=== PATIENT | female | born 1945 | race Caucasian/White ===

== ENCOUNTER 2022-10-21 13:14 | Emergency (ER) | payer MEDICARE, SELFPAY ==
[2022-10-21] VITALS (9 sets, daily range): BP systolic 106–123; BP diastolic 68–71; PULSE 76–86; RESP 16–23; TEMP 36.6; O2SAT 98–100; BMI 21.9
--- NOTE | 2022-10-21 13:38 | ECG_ITS ---
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
--- NOTE | 2022-10-21 13:39 | ED.GENADUL1 ---
HPI - General Adult General Chief complaint: Allergic Reaction Stated complaint: ALLERGIC REACTION Time Seen by Provider: 10/21/22 13:26 Source: patient Mode of arrival: ambulance Limitations: no limitations History of Present Illness HPI narrative: patient stung by up to 9 bees on the right ankle and the right thigh earlier this morning. She took Benadryl and then went to [facility]. While in [facility] she felt dizzy and decided to have something to eat. After eating she vomited several times, got sweaty and the dizziness continued. She had to use the bathroom and had diarrhea. She was able to wipe herself but when she stood the dizziness got worse and she passed out - the daughter was able to catch her so that she did not fall to the floor. She did not hit her head and did not injure herself. EMS brought her in and told us that she was hypotensive when they checked her on arrival. She received NS IVF 500mL, Zofran 4mg IV and 25mg IV Benadryl from EMS. On arrival she complains that she still has some slight nausea/ queasiness . Dizziness has lessened. Related Data Previous Rx's Medication Instructions Recorded ondansetron 4 mg disintegrating 4 mg PO Q6H PRN nausea and 10/21/22 tablet vomiting #20 tabs Allergies Allergy/AdvReac Type Severity Reaction Status Date / Time No Known Drug Allergies Allergy Verified 10/21/22 13:21 Exam Narrative Exam Narrative: Nurses notes and vital signs reviewed and patient is not hypoxic. afebrile General: Well-appearing and in no apparent distress. Skin: Warm, dry, no pallor noted. No rash. Head: Normocephalic, atraumatic. Neck: supple. Non-tender Eye: Pupils are equal, round and EOMI. No scleral icterus. Ears, Nose, Mouth, and Throat: Oral mucosa is moist Cardiovascular: Regular Rate and Rhythm without murmur, gallop or rub. Respiratory: No accessory muscle use or respiratory distress. Lungs are clear to auscultation, no wheezing, rales or rhonchi Back: No CVA tenderness Musculoskeletal: Right LE = several areas of erythema in oval or circular shape to the right thigh, medial and lateral right ankle. There are raised areas associated with the location of the sting but I do not visualize or feel any foreign bodies in the areas of sting. All extremities with normal ROM, no calf or popliteal tenderness, no lower extremity edema/swelling GI: Abdomen is soft, non-distended. Normal bowel sounds. No tenderness to palpation. No rebound, guarding, or rigidity noted. Neurological: A&O x4. No cranial nerve dysfunction observed. No truncal ataxia. Moves all extremities. Sensation intact. Psychiatric: Cooperative and interactive. Normal mood and affect. Constitutional Vital Signs, click to edit/add: Last Vital Signs Temp 97.9 F 10/21/22 13:16 Pulse 83 10/21/22 14:10 Resp 18 10/21/22 14:10 BP 123/71 10/21/22 14:04 Pulse Ox 100 10/21/22 14:10 O2 Del Method Room Air 10/21/22 13:25 Course Vital Signs Vital signs: Vital Signs Temperature 97.9 F 10/21/22 13:16 Pulse Rate 76 10/21/22 13:16 Respiratory Rate 16 10/21/22 13:16 Blood Pressure 106/68 10/21/22 13:16 Pulse Oximetry 99 10/21/22 13:16 Oxygen Delivery Method Room Air 10/21/22 13:16 Temperature 97.9 F 10/21/22 13:16 Pulse Rate 83 10/21/22 14:10 Respiratory Rate 18 10/21/22 14:10 Blood Pressure 123/71 10/21/22 14:04 Pulse Oximetry 100 10/21/22 14:10 Oxygen Delivery Method Room Air 10/21/22 13:25 Medical Decision Making MDM Narrative Medical decision making narrative: Patient was placed on court recording monitor and EKG obtained. Blood drawn and sent for evaluation. she was ordered to receive any additional 500 mL of normal saline IV fluid in the bag. EMS provided and received additional Zofran 4 mg IV. Patient felt better after ED treatment and her lab tests were unremarkable. She was able to eat a popsicle in the ED. She was discharged home with recommendation to take her meds as prescribed - ED return for any new or worrisome symptoms. Lab Data Lab results reviewed: Yes I reviewed the patient's lab results Labs: Lab Results 10/21/22 Range/Units 13:48 WBC 12.0 H (4.0-11.0) 10^3/uL RBC 4.23 (4.20-5.40) 10^6/uL Hgb 12.8 (12.0-16.0) g/dL Hct 39.1 (36.0-48.0) % MCV 92.4 (81.0-99.0) fL MCH 30.3 (26.7-34.0) pg MCHC 32.7 (29.9-35.2) g/dL RDW 14.3 (11.0-15.0) % Plt Count 215 (150-450) 10^3/uL MPV 9.8 (9.5-13.5) fL Neut % (Auto) 88.5 H (43.0-75.0) % Lymph % (Auto) 5.0 L (20.5-60.0) % Rowan % (Auto) 5.1 (1.7-12.0) % Eos % (Auto) 0.6 L (0.9-7.0) % Baso % (Auto) 0.5 (0.2-2.0) % Neut # (Auto) 10.6 H (1.4-6.5) 10^3/uL Lymph # (Auto) 0.6 L (1.2-3.8) 10^3/uL Rowan # (Auto) 0.6 (0.3-0.8) 10^3/uL Eos # (Auto) 0.1 (0.0-0.7) 10^3/uL Baso # (Auto) 0.1 (0.0-0.1) 10^3/uL Abs Immat Gran (auto) 0.03 (0.00-0.03) 10^3/uL Imm/Tot Granulo (auto) 0.3 (0.0-0.5) % Sodium 139 (136-145) mmol/L Potassium 3.4 L (3.5-5.1) mmol/L Chloride 105 (98-107) mmol/L Carbon Dioxide 26.7 (21.0-32.0) mmol/L Anion Gap 10.7 BUN 11.0 (7.0-18.0) mg/dL Creatinine 0.86 (0.55-1.02) mg/dL Est GFR ( Amer) >60 (>=60) Est GFR (Non-Af Amer) >60 (>=60) BUN/Creatinine Ratio 12.8 Glucose 107 H (74-106) mg/dL Calcium 8.5 (8.5-10.1) mg/dL ECG Data Attestation: I personally reviewed and interpreted this ECG as follows: Interpretation: EKG interpretation: Emergency Department physician interpretation. Normal sinus rhythm at 74bpm. Normal axis, normal intervals and no ST segment elevation or depression. Discharge Plan Discharge Chief Complaint: Allergic Reaction Clinical Impression: Syncope, vasovagal, Bee sting reaction, Vomiting Patient Disposition: Home, Self-Care Time of Disposition Decision: 14:40 Prescriptions / Home Meds: New ondansetron 4 mg tablet,disintegrating 4 mg PO Q6H PRN (Reason: nausea and vomiting) Qty: 20 0RF Instructions: Insect Bite or Sting (ED), Acute Nausea and Vomiting (ED), Syncope in Older Adults (ED) Stand Alone Forms: Portal Instructions Referrals: Physician,Non-Staff, MD [Primary Care Provider] - 1 week
[2022-10-21 13:56] LABS: Basophils Absolute Auto 0.1 10^3/uL (0.0-0.1); Basophils Percent Auto 0.5 % (0.2-2.0); Eosinophils Absolute Auto 0.1 10^3/uL (0.0-0.7); Eosinophils Percent Auto 0.6 % (0.9-7.0); Hematocrit 39.1 % (36.0-48.0); Hemoglobin 12.8 g/dL (12.0-16.0); Immature Granulocytes Abs Auto 0.03 10^3/uL (0.00-0.03); Immature Granulocytes Pct Auto 0.3 % (0.0-0.5); Lymphocytes Absolute Auto 0.6 10^3/uL (1.2-3.8); Mean Corpuscular HGB Conc 32.7 g/dL (29.9-35.2); Mean Corpuscular Hemoglobin 30.3 pg (26.7-34.0); Mean Corpuscular Volume 92.4 fL (81.0-99.0); Mean Platelet Volume 9.8 fL (9.5-13.5); Monocytes Absolute Auto 0.6 10^3/uL (0.3-0.8); Monocytes Percent Auto 5.1 % (1.7-12.0); Neutrophils Absolute Auto 10.6 10^3/uL (1.4-6.5); Neutrophils Percent Auto 88.5 % (43.0-75.0); Platelet Count 215 10^3/uL (150-450); Red Blood Count 4.23 10^6/uL (4.20-5.40); Red Cell Distribution Width 14.3 % (11.0-15.0)
[2022-10-21 14:02] LABS: Anion Gap 10.7; BUN Creatinine Ratio 12.8; Calcium 8.5 mg/dL (8.5-10.1); Carbon Dioxide 26.7 mmol/L (21.0-32.0); Chloride 105 mmol/L (98-107); Estimated GFR (African America >60 (>=60); Estimated GFR (Non-African Ame >60 (>=60); Glucose 107 mg/dL (74-106); Potassium 3.4 mmol/L (3.5-5.1); Sodium 139 mmol/L (136-145)
[2022-10-21] MEDS: ONDANSETRON PF 4 MG/2 ML VIAL IV (14:04)
== END 2022-10-21 15:03 | disposition home or self-care (01) ==
PROVIDERS: Emergency Provider Emergency Medicine
DX: T63.441A Toxic effect of venom of bees, accidental (unintentional), initial encounter (principal); R55 Syncope and collapse; R11.10 Vomiting, unspecified
CPT/HCPCS: 36415; 80048; 85025; 93005; 96374; 99285

== ENCOUNTER 2023-05-21 07:51 | Outpatient (OUT) | payer MEDICARE, SELFPAY ==
[2023-05-21 08:25] LABS: Basophils Absolute Auto 0.1 10^3/uL (0.0-0.1); Basophils Percent Auto 1.5 % (0.2-2.0); Eosinophils Absolute Auto 0.1 10^3/uL (0.0-0.7); Eosinophils Percent Auto 2.9 % (0.9-7.0); Hematocrit 37.5 % (36.0-48.0); Hemoglobin 11.8 g/dL (12.0-16.0); Lymphocytes Absolute Auto 1.4 10^3/uL (1.2-3.8); Lymphocytes Percent Auto 29.1 % (20.5-60.0); Mean Corpuscular HGB Conc 31.5 g/dL (29.9-35.2); Mean Corpuscular Hemoglobin 28.9 pg (26.7-34.0); Mean Corpuscular Volume 91.7 fL (81.0-99.0); Mean Platelet Volume 9.9 fL (9.5-13.5); Monocytes Absolute Auto 0.5 10^3/uL (0.3-0.8); Monocytes Percent Auto 11.1 % (1.7-12.0); Neutrophils Absolute Auto 2.6 10^3/uL (1.4-6.5); Neutrophils Percent Auto 55.4 % (43.0-75.0); Platelet Count 234 10^3/uL (150-450); Red Blood Count 4.09 10^6/uL (4.20-5.40); Red Cell Distribution Width 14.2 % (11.0-15.0); White Blood Count 4.8 10^3/uL (4.0-11.0)
[2023-05-21 08:42] LABS: Alanine Aminotransferase 22 U/L (14-59); Albumin Globulin Ratio 0.9; Albumin Level 3.7 g/dL (3.4-5.0); Alkaline Phosphatase 87 U/L (46-116); Anion Gap 14.3; Aspartate Amino Transferase 20 U/L (15-37); BUN Creatinine Ratio 19.5; Calcium 9.2 mg/dL (8.5-10.1); Carbon Dioxide 27.4 mmol/L (21.0-32.0); Chloride 103 mmol/L (98-107); Chol HDL Ratio 2.4; Cholesterol 169 mg/dL (<=200); Estimated GFR (African America >60 (>=60); Estimated GFR (Non-African Ame >60 (>=60); Globulin 3.9 g/dL; Glucose 95 mg/dL (74-106); HDL Cholesterol 71 mg/dL (40-60); Potassium 3.7 mmol/L (3.5-5.1); Sodium 141 mmol/L (136-145); Total Protein 7.6 g/dL (6.4-8.2); Triglycerides 86 mg/dL (<=150); VLDL CHOLESTEROL 17.2 mg/dL
== END 2023-05-21 07:52 | disposition home or self-care (01) ==
LOC: LAB 07:51
PROVIDERS: Visit Provider Internal Medicine
DX: E78.5 Hyperlipidemia, unspecified (principal)
CPT/HCPCS: 36415; 80053; 80061; 85025

== ENCOUNTER 2023-12-24 08:27 | Outpatient (OUT) | payer MEDICARE, SELFPAY ==
[2023-12-24 09:03] LABS: Basophils Absolute Auto 0.1 10^3/uL (0.0-0.1); Basophils Percent Auto 1.4 % (0.2-2.0); Eosinophils Absolute Auto 0.1 10^3/uL (0.0-0.7); Eosinophils Percent Auto 2.2 % (0.9-7.0); Hematocrit 39.5 % (36.0-48.0); Hemoglobin 12.5 g/dL (12.0-16.0); Immature Granulocytes Abs Auto 0.01 10^3/uL (0.00-0.03); Immature Granulocytes Pct Auto 0.2 % (0.0-0.5); Lymphocytes Absolute Auto 1.5 10^3/uL (1.2-3.8); Lymphocytes Percent Auto 27.6 % (20.5-60.0); Mean Corpuscular HGB Conc 31.6 g/dL (29.9-35.2); Mean Corpuscular Hemoglobin 28.5 pg (26.7-34.0); Mean Platelet Volume 10.8 fL (9.5-13.5); Monocytes Absolute Auto 0.5 10^3/uL (0.3-0.8); Monocytes Percent Auto 8.5 % (1.7-12.0); Neutrophils Absolute Auto 3.3 10^3/uL (1.4-6.5); Neutrophils Percent Auto 60.1 % (43.0-75.0); Platelet Count 189 10^3/uL (150-450); Red Blood Count 4.39 10^6/uL (4.20-5.40); Red Cell Distribution Width 14.3 % (11.0-15.0); White Blood Count 5.6 10^3/uL (4.0-11.0)
[2023-12-24 09:23] LABS: Alanine Aminotransferase 17 U/L (14-59); Albumin Level 3.8 g/dL (3.4-5.0); Alkaline Phosphatase 71 U/L (46-116); Anion Gap 13.4; Aspartate Amino Transferase 24 U/L (15-37); BUN Creatinine Ratio 14.6; Bilirubin Total 1.3 mg/dL (0.2-1.0); Calcium 9.5 mg/dL (8.5-10.1); Chloride 105 mmol/L (98-107); Chol HDL Ratio 2.4; Cholesterol 180 mg/dL (<=200); Estimated GFR (African America >60 (>=60 mL/min/1.73m^2); Estimated GFR (Non-African Ame >60 (>=60 mL/min/1.73m^2); Globulin 3.7 g/dL; Glucose 95 mg/dL (74-106); HDL Cholesterol 76 mg/dL (40-60); Potassium 4.4 mmol/L (3.5-5.1); Sodium 141 mmol/L (136-145); Thyroid Stimulating Hormone 2.466 uIU/mL (0.358-3.740); Total Protein 7.5 g/dL (6.4-8.2); Triglycerides 104 mg/dL (<=150); VLDL CHOLESTEROL 20.8 mg/dL
== END 2023-12-24 08:28 | disposition home or self-care (01) ==
LOC: LAB 08:27
PROVIDERS: Visit Provider Nurse Practitioner Adult Health
DX: E78.5 Hyperlipidemia, unspecified (principal); R03.0 Elevated blood-pressure reading, without diagnosis of hypertension; Z51.81 Encounter for therapeutic drug level monitoring; D50.9 Iron deficiency anemia, unspecified
CPT/HCPCS: 36415; 80053; 80061; 82043; 82570; 84443; 85025

== ENCOUNTER 2024-06-11 08:32 | Outpatient (OUT) | payer MEDICARE, SELFPAY ==
--- OUTSIDE RECORDS SUMMARY | 2024-06-11 08:40 | XMS_ITS | CCD ---
Author Organization [facility] CliniSyoh Care Team Providers [employer] Name Role Phone ZACHARY VERA Consulting Unavailable REQUEST, NONE LISTED Attending Unavaila ble REQUEST, NONE LISTED Admitting Unavaila ble REQUEST, NONE LISTED Attending Unavaila ble REQUEST, NONE LISTED Consulting Unavaila ble REQUEST, NONE LISTED Admitting Unavaila ble ZACHARY VERA Attending Unavailable ZACHARY VERA Consulting Unavailable ZACHARY VERA Admitting Unavailable Kasia Meza Unavailable DO Apolinar Nguyen Primary Care Provider Self, Referral Attending Provider Unavailable DO Apolinar Nguyen Primary Care Provider [phone] BLANCA Faye Attending Provider DO Apolinar Nguyen Primary Care Provider [phone] BLANCA Faye Attending Provider [phone] SENTHIL Meza Attending Provider [phone] DO Apolinar Nguyen Primary Care Provider Self, Referral Attending Provider Unavailable Kasia Meza Admitting Unavailable Kasia Meza Attending Unavailable Apolinar Nguyen Primary Care Unavailable Self, Referral Admitting Unavailable Self, Referral Attending Unavailable Apolinar Nguyen Primary Care Unavailable Apolinar Nguyen DO Primary Care Provider Apolinar Nguyen DO Unavailable APOLINAR NGUYEN Attending Unavailable APOLINAR NGUYEN Referring Unavailable APOLINAR NGUYEN Attending Unavailable APOLINAR NGUYEN Referring Unavailable PERRY BAKER Attending Unavailable GAETANO FAYE Attending Unavailable Allergies Allergy Classification Reported Allergen(s) Allergy Type Date of Onset Reaction(s) Facility (3 sources) Honey bee venom Propensity to adverse reactions 3 Swelling [facility] Work Phone: Medications Current Medications Medication Drug Class(es) Dates Sig (Normalized) Sig (Original) acetaminophen 325 mg oral capsule (6 sources) take 1 capsule by mouth every six hours as needed acetaminophen (Tylenol) 325 MG capsule Take 325 mg by mouth every 6 (six) hours if needed. Active tylenol 1 tab Or al Active aspirin 81 mg delayed release oral tablet (8 sources) Platelet Aggregation Inhibitor, Nonsteroidal Anti-inflammatory Drug Start: 08-11-2023 Aspirin (Adult Lo w Dose Aspirin) 81 mg tablet,delayed release (DR/EC) Active 81 MG PO Daily August 11, 2023 12:00am take 1 tablet by luis th every twenty-four hours Aspirin 81 MG 1 tablet Orally Once a day Active atorvastatin 10 mg oral tablet (8 sources) HMG-CoA Reductase Inhibitor Start: 06-20-2023 take 1 tablet by mouth at bedtime atorvastatin (Lipitor) 10 MG tablet Indications: Hyperlipidemia LDL goal Take 1 tablet (10 mg) by mouth at bedtime 90 tablet 3 06/20/2023 Active take 1 tablet by luis th every twenty-four hours Lipitor 20 MG 1 tablet Orally Once a day Active Z08-Cilozt 1 MG (3 sources) E70-Swaazt 1 MG Orally Not-Taking calcium carbonate 1250 mg oral tablet (3 sources) take 1 tablet by mouth every twelve hours Calcium 500 MG 1 tablet with meals Orally Twice a day Active calcium citrate 1500 mg / cholecalciferol 200 unt oral tablet (2 sources) Vitamin D Start: 08-11-19 24 take 1 tablet by mouth twice daily Calcium Citrate-Vitamin D3 (Calcium Citrate + D) 315 mg-5 mcg (200 unit) tablet Active 1 TAB PO Twice daily August 11, 2023 12:00am Calcium Citrate / Vitamin D (3 sources) take 650 mg by mouth once daily Calcium Citrate-Vitamin D (CALCIUM CITRATE +D PO) Take 650 mg by mouth 1 (one) time each day Active cholecalciferol 0.05 mg oral tablet (3 sources) Vitamin D End: 12-30-19 24 take 1 tablet by mouth in the morning cholecalciferol (Vitamin D-3) 50 MCG (2000 UT) tablet Take 1 tablet by mouth in the morning. 12/30/2023 Discontinued clobetasol propionate 0.0005 mg/mg topical ointment (6 sources) Corticosteroid clobetasol (Rogers vate) 0.05 % ointment 1 application 2 (two) times a day as needed. Active Temovate Active famotidine 20 mg oral tablet (5 sources) Histamine-2 Receptor Antagonist Start: 07-23-2023 take 1 tablet by mouth at bedtime famotidine (Pepcid) 20 MG tablet Indications: LPRD (laryngopharyngeal reflux disease) Take 1 tablet (20 mg) by mouth at bedtime 90 tablet 3 07/23/2023 Active Lactobacillus Combination No.9 (Adult 50 Plus Probiotic) 4 billion cell capsule (2 sources) Start: 08-11-2023 take 4 capsules by mouth once daily Lactobacillus Combination No.9 (Adult 50 Plus Probiotic) 4 billion cell capsule Active 4000 MMU CELLS PO Daily August 11, 2023 12:00am administer with a meal lisinopril 5 mg oral tablet (5 sources) Angiotensin Converting Enzyme Inhibitor Start: 09-24-2023 take 1 tablet by mouth once daily lisinopril 5 MG tablet Indications: Borderline high blood pressure TAKE 1 TABLET BY MOUTH EVERY DAY 90 tablet 3 09/24/2023 Active Start: 08-11-2023 take 2.5 mg by mouth once raymundo y Lisinopril Active 2.5 MG PO Daily August 11, 2023 12:00am Multivitamin Adults 50+ - (3 sources) Multivitamin Yong lts 50+ - Orally Active omeprazole 40 mg oral tablet (5 sources) Proton Pump Inhibitor Start: take 40 mg by mouth once daily Omeprazole Active 40 MG PO Daily August 11, 2023 12:00am Start: 07-23-2023 take 1 capsule by mo [facility] once daily before mealtime omeprazole (PriLOSEC) [address] capsule Indications: LPRD (laryngopharyngeal reflux disease) TAKE 1 CAPSULE BY MOUTH EVERY MORNING BEFORE MEALS. DO NOT CRUSH OR CHEW 90 capsule 3 07/23/2023 Active predniSONE 20 mg oral tablet (6 sources) Start: 08-11-2023 take 20 mg by mouth twice daily Prednisone Active 20 MG PO Twice daily 10 5 August 11, 2023 12:00am Start: 09-09-2021 take 1 tablet by luis every twelve hours predniSONE 20 MG 1 tablet Orally bid for 5 day(s) Sep, Not-Taking triamcinolone acetonide 0.25 mg/ml topical cream (1 source) Corticosteroid Start: 08-11-2023 Triamcinolone Acetonide Active 1 APPLIC TOPICAL Twice daily 15 August 11, 2023 12:00am Vitamin D3 Complete - (3 sources) Vitamin D3 Compl ete - Orally Active Completed/Discontinued Medications Medication Drug Class(es) Dates Sig (Normalized) Sig (Original) cefdinir 300 mg oral capsule (3 sources) Cephalosporin Antibacterial take 1 capsule by mouth every twelve hours Cefdinir 300 MG 1 capsule Orally every 12 hrs for 10 days Not-Taking Gait/Transfer Belt - (3 sources) Start: 06-05-2016 Gait/Transfer Belt - as directed Jun, Not-Taking Problems Active Problems Problem Classification Problem Date Documented Date Episodic/Chronic Administrative/socia l admission (10 sources) Patient encounter status; Translations: [Other specified counseling] Onset: 11-20-2022 Resolved: 05-23-2023 03-27-2023 Episodic Allergic reactions (3 sources) Allergic contact dermatitis due to plants, except food; Translations: [Contact dermatitis due to poison yash] Onset: 09-09-2021 Resolved: 09-09-2021 Episodic Deficiency and other anemia (5 sources) Iron deficiency anemia; Translations: [Iron deficiency anemia, unspecified] Onset: 05-23-2023 05-23-2023 Episodic Disorders of lipid metabolism (5 sources) Hyperlipidemia; Translations: [Hyperlipidemia, unspecified] Onset: 07-05-2014 10-08-2022 Chronic Esophageal disorders (5 sources) Laryngopharyngeal reflux; Translations: [Gastro-esophageal reflux disease without esophagitis] Onset: 10-26-2022 10-26-2022 Chronic Essential hypertension (4 sources) Essential hypertension; Translations: [Essential (primary) hypertension] Onset: 12-30-2023 12-30-2023 Chronic Fracture of neck of femur (hip) (3 sources) Closed fracture of neck of femur; Translations: [Fracture of unspecified part of neck of left femur, subsequent encounter for closed fracture with routine healing] Episodic Immunizations and screening for infectious disease (6 sources) Encounter for immunization; Translations: [Needs influenza immunization] Onset: 12-28-2020 Episodic Nutritional deficiencies (3 sources) Vitamin D deficiency; Translations: [Vitamin D deficiency, unspecified] Onset: 06-07-2016 10-08-2022 Chronic Osteoporosis (3 sources) Osteoporosis; Translations: [Age-related osteoporosis without current pathological fracture] Onset: 07-14-2015 10-08-2022 Chronic Other connective tissue disease (1 source) Pain in right foot Episodic Superficial injury; contusion (1 source) Contusion of right foot, initial encounter Episodic Unclassified (1 source) Pain in right foot; Translations: [Pain in right foot] Onset: 01-30-2023 Past or Other Problems Problem Classification Problem Date Documented Da te Episodic/Chronic Genitourinary symptoms and ill-defined conditions (3 sources) Dysuria; Translations: [Dysuria] Onset: 08-01-2022 Resolved: 03-27-2023 03-27-2023 Episodic Inflammatory diseases of female pelvic organs (3 sources) Acute vaginitis; Translations: [Acute vaginitis] Onset: 08-01-2022 Resolved: 11-20-2022 11-20-2022 Episodic Menopausal disorders (3 sources) Atrophic vaginitis; Translations: [Postmenopausal atrophic vaginitis] Onset: 08-01-2022 Resolved: 11-20-2022 11-20-2022 Chronic Mood disorders (2 sources) Mood disorders Onset: 12-30-2023 12-30-2023 Other circulatory disease (3 sources) Prehypertension; Translations: [Elevated blood-pressure reading, without diagnosis of hypertension] Onset: 03-26-2023 Resolved: 12-30-2023 03-26-2023 Episodic Other screening for suspected conditions (not mental disorders or infectious disease) (4 sources) Encounter for screening mammogram for malignant neoplasm of breast; Translations: [Patient encounter status] Onset: 10-15-2022 Resolved: 03-27-2023 03-27-2023 Episodic Other upper respiratory disease (3 sources) Hoarse; Translations: [Dysphonia] Onset: 10-15-2022 Resolved: 03-27-2023 03-27-2023 Episodic Other upper respiratory disease (3 sources) Polyp of vocal cord ; 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] Onset: 10-26-2022 Resolved: 05-23-2023 05-23-2023 Episodic Results Test Name Value Interpretation Reference Range Facil ity ALL CBC WITH AUTO DIFFon BASOPHILS ABSOLUTE AUTO 0.1 [facility] Basophils/100 WBC (Bld) 1.4 % 0.2 - 2.0 % [facility] Eosinophils/100 WBC (Bld) 2.2 % 0.9 - 7.0 % [facility] Erythrocyte distribution width (RBC) [Ratio] 14.3 % 11.0 - 15.0 % [facility] Hematocrit (Bld) [Volume fraction] 39.5 % 36.0 - 48.0 % [facility] Hemoglobin (Bld) [Mass/Vol] 12.5 g/dL 12.0 - 16.0 g/dL [facility] IMMATURE GRANULOCYTES ABS AUTO 0.01 [facility] Immature granulocytes/100 WBC (Bld) 0.2 % 0.0 - 0.5 % [facility] LYMPHOCYTES ABSOLUTE AUTO 1.5 [facility] Lymphocytes/100 WBC (Bld) 27.6 % 20.5 - 60.0 % [facility] MCH (RBC) [Entitic mass] 28.5 pg 26.7 - 34.0 pg [facility] MCHC (RBC) [Mass/Vol] 31.6 g/dL 29.9 - 35.2 g/dL [facility] MCV (RBC) [Entitic vol] 90 fL 81.0 - 99.0 fL [facility] MONOCYTES ABSOLUTE AUTO 0.5 [facility] Monocytes/100 WBC (Bld) 8.5 % 1.7 - 12.0 % [facility] NEUTROPHILS ABSOLUTE AUTO 3.3 [facility] Neutrophils/100 WBC (Bld) 60.1 % 43.0 - 75.0 % [facility] Platelet mean volume (Bld) [Entitic vol] 10.8 fL 9.5 - 13.5 fL [facility] TBH EO # 0.1 [facility] PLT 189 [facility] RBC 4.39 [facility] WBC 5.6 [facility] MM screening mammo BI w/CADo n 12-17-2023 MM screening mammo BI w/CAD [facility] Main [place] [id number] Mammography Report Signed Patient: Coral Juan MR#: [id number] : 1945 Acct:[id number] Age/Sex: 78 / F ADM Date: 12/17/23 Loc: [place] Room: Type: REG CLI Attending Dr: Nathan Self Copies to: Apolinar Nguyen DO SELF,REFERRAL Ordering Provider: SELF,REFERRAL Date of Service: 12/17/23 MM/MM screening mammo BI w/CAD: SCREENING CLINICAL DATA: Screening for malignancy. BILATERAL SCREENING MAMMOGRAMS - FULL FIELD DIGITAL WITH TOMOSYNTHESIS AND CAD Tomosynthesis craniocaudal and mediolateral oblique views of both breasts were obtained using low- dose digital technique. Comparison is made to prior studies from 11/13/2022, 11/10/2021, 10/27/2020, and 10/08/2019. This examination was reviewed with the aid of CAD. There are scattered fibroglandular densities. Benign-appearing lymph nodes are noted chest wall. There are benign-appearing calcifications bilaterally. There are no dominant masses, typically malignant calcifications or architectural distortion. There has been no significant interval change. MM/MM screening mammo BI w/CAD IMPRESSION: NO MAMMOGRAPHIC EVIDENCE OF MALIGNANCY. ROUTINE FOLLOW-UP IS RECOMMENDED IN ONE YEAR. RESULT CODE: 2 Benign Findings(s) DENSITY CODE: 2 (approximately 25-50% glandular) FOLLOW UP: 1YR The false-negative rate of mammography is approximately 10-percent. Management of a palpable abnormality must be based on clinical grounds. Patient was entered into a reminder system with a target due date for the next mammogram. Impression dictated by: Merritt Quiroz M.D.12/17/2023 2:27 PM Dictation Location: [facility] Transcribed By: [facility] 12/17/23 142 Dictated By: Merritt Quiroz II, MD 12/17/231421 Signed By: 12/17/23 142 Normal [facility] XR foot RT min 3V*on 023 XR foot RT min 3V* [facility] Main [place] [address] [place] [address] XRay Report Signed Patient: Coral Juan MR#: [id number] : 1945 Acct:[id number] Age/Sex: 77 / F ADM Date: 01/30/23 Loc: XDUCLY Room: Type: REG CLI Attending Dr: Kasiabal NDIAYE Copies to: SENTHIL Mccrary Ordering Provider: SENTHIL Mccrary Date of Service: 01/30/23 XR/XR foot RT min 3V*: Right foot pain RIGHT FOOT - 3 views CLINICAL DATA: Patient dropped a board onto her foot 3 days ago and has pain and bruising at the distal second through fourth metatarsals COMPARISON: None AP, lateral and oblique views were obtained. Minor irregularity is seen at the articular aspect of the head of the second metatarsal. This could be degenerative or AVN (Freiberg's infraction). There is also minor chronic appearing deformity at the head of the proximal phalanx of the fifth toe. There is no definite acute fracture or dislocation. A small plantar calcaneal spur is seen. There are no significant soft tissue abnormalities. XR/XR foot RT min 3V* IMPRESSION: NO ACUTE BONY INJURY. Impression dictated by: Coral Deleon M.D.01/30/2023 3:18 PM Dictation Location: [place] [address] Transcribed By: [facility] 01/30/23 1518 Dictated By: Coral Deleon MD 01/30/23 1512 Signed By: 01/30/23 1518 Normal [facility] XR foot RT min 3V* [facility] [employer] Other XR foot RT min 3V* [facility] [employer] Other XR foot RT min 3V* [address] [place] [address] [employer] Other XR foot RT min 3V* [place] [address] [employer] Other XR foot RT min 3V* XRay Report [employer] Other XR foot RT min 3V* Signed [employer] Other XR foot RT min 3V* Patient: Coral Juan MR#: [id number] [employer] Other XR foot RT min 3V* : 1945 Acct:[id number] [employer] Other XR foot RT min 3V* Age/Sex: 77 / F ADM Date: 01/30/23 [employer] Other XR foot RT min 3V* Loc: XDUCLY Room: Type: [facility] [employer] Other XR foot RT min 3V* Attending Dr: Kasia NDIAYE [employer] Other XR foot RT min 3V* Copies to: SENTHIL Mccrary [employer] Other XR foot RT min 3V* Ordering Provider: SENTHIL Mccrary [employer] Other XR foot RT min 3V* Date of Service: 01/30/23 [employer] Other XR foot RT min 3V* XR/XR foot RT min 3V*: Right foot pain [employer] Other XR foot RT min 3V* RIGHT FOOT - 3 views [employer] Other XR foot RT min 3V* CLINICAL DATA: Patient dropped a board onto her foot 3 days ago and has pain and bruising at the [employer] Other XR foot RT min 3V* distal second through fourth metatarsals [employer] Other XR foot RT min 3V* COMPARISON: None [employer] Other XR foot RT min 3V* AP, lateral and oblique views were obtained. Minor irregularity is seen at the articular aspect of [employer] Other XR foot RT min 3V* the head of the second metatarsal. This could be degenerative or AVN (Freiberg's infraction). [employer] Other XR foot RT min 3V* There is also minor chronic appearing deformity at the head of the proximal phalanx of the fifth [employer] Other XR foot RT min 3V* toe. There is no definite acute fracture or dislocation. A small plantar calcaneal spur is seen. [employer] Other XR foot RT min 3V* There are no significant soft tissue abnormalities. [employer] Other XR foot RT min 3V* XR/XR foot RT min 3V* [employer] Other XR foot RT min 3V* IMPRESSION: [employer] Other XR foot RT min 3V* NO ACUTE BONY INJURY. [employer] Other XR foot RT min 3V* Impression dictated by: Coral Deleon M.D.01/30/2023 3:18 PM [employer] Other XR foot RT min 3V* Dictation Location: [place] [address] [employer] Other XR foot RT min 3V* Transcribed By: [facility] 01/30/23 [facility] [employer] Other XR foot RT min 3V* Dictated By: Coral Deleon MD 01/30/[address] [place] [address] [employer] Other XR foot RT min 3V* Signed By: [place] [employer] Other XR foot RT min 3V* 01/30/[address] [place] [address] [employer] Other Vital Signs Date Time Vital Sign Value Performing Clinician Facility 12-30-2023 11:51-0400 Body height 158.8 cm Gaetano Faye [employer] Work Phone: [facility] 12-30-2023 11:51-0400 Body mass index (BMI) [Ratio] 21.06 kg/m2 Gaetano Faye [employer] Work Phone: [facility] 12-30-2023 11:51-0400 Body weight 53.07 kg Gaetano Faye [employer] Work Phone: [facility] 12-30-2023 11:51-0400 Diastolic blood pressure 64 mm[Hg] Gaetano Faye [employer] Work Phone: [facility] 12-30-2023 11:51-0400 Heart rate 71 /min Gaetano Faye [employer] Work Phone: [facility] 12-30-2023 11:51-0400 SaO2% (BldA) [Mass fraction] 96 % Gaetano Faye [employer] Work Phone: [facility] 12-30-2023 11:51-0400 Systolic blood pressure 140 mm[Hg] Gaetano Faye [employer] Work Phone: [facility] 08-11-2023 12:34-0400 Body height 160.02 cm [facility] 08-11-2023 12:34-0400 Body mass index (BMI) [Ratio] 20.5 kg/m2 [facility] 08-11-2023 12:34-0400 Body temperature 97.5 [degF] [facility] 08-11-2023 12:34-0400 Body weight 52.67 kg [facility] 08-11-2023 12:34-0400 Diastolic blood pressure 78 mm[Hg] [facility] 08-11-2023 12:34-0400 Heart rate 62 /min [facility] 08-11-2023 12:34-0400 Respiratory rate 16 /min [facility] 08-11-2023 12:34-0400 SaO2% (BldA) [Mass fraction] 99 % [facility] 08-11-2023 12:34-0400 Systolic blood pressure 138 mm[Hg] [facility] 01-30-2023 14:45-0500 Body height 160.02 cm Kasia Meza Other [employer] [facility] [employer] Other 01-30-2023 14:45-0500 Body mass index (BMI) [Ratio] 21.43 kg/m2 Kasia Meza Other [employer] Other 01-30-2023 14:45-0500 Body temperature 100 [degF] Kasia Susana Other [employer] Other 01-30-2023 14:45-0500 Body weight 54.89 kg Kasia Susana Other [employer] Other 01-30-2023 14:45-0500 Diastolic blood pressure 83 mm[Hg] Kasia Susana Other [employer] Other 01-30-2023 14:45-0500 Respiratory rate 18 /min Kasia Susana Other [employer] Other 01-30-2023 14:45-0500 SaO2% (BldA) [Mass fraction] 95 % Kasia Susana Other [employer] Other 01-30-2023 14:45-0500 Systolic blood pressure 165 mm[Hg] Kasia Susana Other [employer] Other 09-08-2022 10:15-0400 Body height 160.02 cm Kasia Susana Other [employer] Other 09-08-2022 10:15-0400 Body mass index (BMI) [Ratio] 21.57 kg/m2 Kasia Susana Other [employer] Other 09-08-2022 10:15-0400 Body temperature 98.9 [degF] Kasia Susana Other [employer] Other 09-08-2022 10:15-0400 Body weight 55.25 kg Kasia Susana Other [employer] Other 09-08-2022 10:15-0400 Diastolic blood pressure 87 mm[Hg] Kasia Susana Other [employer] Other 09-08-2022 10:15-0400 Respiratory rate 18 /min Kasia Susana Other [employer] Other 09-08-2022 10:15-0400 SaO2% (BldA) [Mass fraction] 99 % Kasia Susana Other [employer] Other 09-08-2022 10:15-0400 Systolic blood pressure 175 mm[Hg] Kasia Susana Other [employer] Other 09-09-2021 14:35-0400 Body height 160.02 cm Kasia Susana Other [employer] Other 09-09-2021 14:35-0400 Body mass index (BMI) [Ratio] 19.84 kg/m2 Kasia Susana Other [employer] Other 09-09-2021 14:35-0400 Body temperature 98.2 [degF] Kasia Susana Other [employer] Other 09-09-2021 14:35-0400 Body weight 50.8 kg Kasia Susana Other [employer] Other 09-09-2021 14:35-0400 Diastolic blood pressure 83 mm[Hg] Kasia Susana Other [employer] Other 09-09-2021 14:35-0400 Respiratory rate 18 /min Kasia Susana Other [employer] Other 09-09-2021 14:35-0400 SaO2% (BldA) [Mass fraction] 99 % Kasia Meza Other [employer] Other 09-09-2021 14:35-0400 Systolic blood pressure 139 mm[Hg] Kasia Meza Other [employer] Other Encounters Encounter Date Encounter Type Care Provider Facility Start: 12-30-2023 End: 12-30-2023 Office outpatient visit 25 minutes Gaetano Faye [employer]SEM[employer]ER Work Phone: [facility] Comment on above: Encounter for subseq uent annual wellness visit (AWV) in Medicare patient (Primary Dx); Essential hypertension (CMS/HCC); ACP (advance care planning); Hyperlipidemia LDL goal <130 (CMS/HCC); Iron deficiency anemia, unspecified iron deficiency anemia type; LPRD (laryngopharyngeal reflux disease); Need for immunization against influenza; Medication management Start: 12-30-2023 End: 12-30-2023 Patient encounter procedure Gaetano Faye SUB[employer]SEM[employer]ER Work Phone: [facility] Work Phone: Start: 12-30-2023 End: 12-30-2023 ambulatory GAETANO FAYE Not Available Start: 12-24-2023 End: 12-24-2023 Clinisync Result Encounter Gaetano Faye [employer] Work Phone: [facility] Unsolicited Start: 12-24-2023 End: 12-24-2023 Clinisync Result Encounter Gaetano Faye [employer] Work Phone: [facility] Unsolicited Start: 12-17-2023 End: 12-17-2023 ambulatory DO Apolinar Nguyen Work Phone: [facility] Work Phone: Start: 12-17-2023 End: 12-17-2023 Patient encounter procedure DO Apolinar gNuyen Work Phone: [facility] Work Phone: Start: 08-11-2023 End: 08-11-2023 ambulatory [facility] Work Phone: Start: 08-11-2023 End: 08-11-2023 Patient encounter procedure [facility] [place] Work Phone: Start: 05-23-2023 End: 05-23-2023 ambulatory APOLINAR NGUYEN Not Available Start: 03-27-2023 End: 03-27-2023 ambulatory APOLINAR NGUYEN Not Available Start: 02-01-2023 End: 02-01-2023 ambulatory PERRY BAKER Not Available Start: 01-30-2023 End: 01-30-2023 Patient encounter procedure DO Apolinar Patrick Work Phone: [facility] [place] Work Phone: Start: 01-30-2023 End: 01-30-2023 ambulatory DO Apolinar Patrick Work Phone: [facility] Work Phone: Start: 01-30-2023 Office outpatient vi sit 15 minutes Kasia Meza [facility] [place] Start: 11-20-2022 End: 03-27-2023 Patient encounter procedure [facility]et[facility] Faye [facility] Start: 11-13-2022 End: 11-13-2022 ambulatory DO Apolinar Nguyen Work Phone: [facility] Work Phone: Start: 11-13-2022 End: 11-13-2022 Patient encounter procedure DO Apolinar Nguyen Work Phone: [facility] Work Phone: Start: 09-08-2022 End: 09-08-2022 ambulatory Kasia Meza Other [employer] Other Start: 09-08-2022 Office outpatient vi sit 15 minutes Kasia Meza [facility] [place] Start: 11-10-2021 End: 11-10-2021 Patient encounter procedure DO [facility] Nguyen [facility] Start: 09-09-2021 End: 09-09-2021 ambulatory Kasia Meza Other [employer] Other Start: 09-09-2021 Office outpatient ne w 20 minutes Kasia Meza [facility] [facility] Start: 12-28-2020 End: 12-29-2020 ambulatory ZACHARY VERA Facility:[facility] Start: 05-10-2020 End: 05-11-2020 ambulatory NONE LISTED REQUEST Facility: Start: 04-11-2020 End: 04-12-2020 ambulatory ZACHARY VERA Facility: Procedures Date Procedure Procedure Detail Performing Clinician Start: 12-24-2023 ALL CBC WITH AUTO DIFF Gaetano Faye NP Work Phone: Start: 12-17-2023 Screening mammograph y of bilateral breasts DO Apolinar Nguyen Work Phone: Start: 01-30-2023 X-ray of right foot DO Apolinar Nguyen Work Phone: Start: 11-13-2022 Screening mammograph y of bilateral breasts DO Apolinar Nguyen Work Phone: Start: 11-10-2021 Screening mammograph y of bilateral breasts DO Apolinar Wintersman Work Phone: Plan of Treatment Date Care Activity Detail Author Start: 07-02-2024 End: 12-29-2024 CBC panel - Blood by Automated count CBC Lab Routine Iron deficiency anemia, unspecified iron deficiency anemia type Medication management Expected: 07/02/2024, Expires: 12/29/2024 [facility] Comment on above: Expected: 07/02/2024 , Expires: 12/29/2024 Start: 07-02-2024 End: 12-29-2024 Comprehensive metabolic 2000 panel - Serum or Plasma Comprehensive metabolic panel Lab Routine Essential hypertension (CMS/HCC) Expected: 07/02/2024, Expires: 12/29/2024 [facility] Comment on above: Expected: 07/02/2024 , Expires: 12/29/2024 Start: 07-02-2024 End: 12-29-2024 Lipid 1996 panel - Serum or Plasma Lipid panel Lab Routine Hyperlipidemia LDL goal <130 ([facility]/HCC) Expected: 07/02/2024, Expires: 12/29/2024 [facility] Comment on above: Expected: 07/02/2024 , Expires: 12/29/2024 Start: 07-02-2024 End: 12-29-2024 Microalbumin/Creatinine panel in random Urine Microalbumin / creatinine urine ratio Lab Routine Essential hypertension ([facility]) Expected: 07/02/2024, Expires: 12/29/2024 [facility] Work Phone: Comment on above: Expected: 07/02/2024 , Expires: 12/29/2024 Start: 06-29-2024 End: 06-29-2024 Patient encounter procedure 06/29/2024 11:15 AM EDT Office Visit [facility] [address] [place] [id number] Apolinar Nguyen, DO [address] [place] [address] [facility] Start: 12-30-2023 End: 12-30-2023 Patient encounter procedure 12/30/2023 11:15 AM EDT Office Visit [facility] [address] [place] [id number] Apolinar Nguyen, DO [address] [place] [address] [facility] Start: 11-03-2023 Influenza vaccination Influenza Vacc ine (#1) [facility] Start: 1945 Medicare Annual Wellness (AWV) Medicare Annual Wellness (AWV) [facility] Immunizations Immunization Date Immunization Notes Care Provider Fa cility 12-30-2023 Seasonal trivalent influenza vaccine, adjuvanted, preservative free Gaetano Faye SUBASSEMBLER Work Phone: [facility] 11-20-2022 Influenza, Seasonal, Quadrivalent, Adjuvanted Gaetano Faye SUBASSEMBLER Work Phone: [facility] 11-20-2022 influenza virus vacc ine, unspecified formulation Gaetano Faye SUBASSEMBLER Work Phone: [facility] 11-24-2021 Influenza, High-dose Seasonal, Quadrivalent, Preservative Free Gaetano Faye SUBASSEMBLER Work Phone: [facility] 11-10-2021 SARS-COV-2 (COVID-19 ) vaccine, mRNA, spike protein, LNP, bivalent, PF Gaetano Faye SUBASSEMBLER Work Phone: [facility] 12-05-2020 Influenza, High-dose Seasonal, Quadrivalent, Preservative Free Gaetano Faye SUBASSEMBLER Work Phone: [facility] 09-10-2017 tetanus and diphther ia toxoids, adsorbed, preservative free, for adult use (5 Lf of tetanus toxoid and 2 Lf of diphtheria toxoid) Gaetano Faye SUBASSEMBLER Work Phone: [facility] 02-05-2017 pneumococcal conjuga te vaccine, 13 valent Gaetano Faye SUBASSEMBLER Work Phone: [facility] 02-10-2016 pneumococcal polysaccharide vaccine, 23 valent Gaetano Faye SUBASSEMBLER Work Phone: [facility] Payers Date Payer Category Payer Private Health Insurance [employer] [address] [id number] 2022 Unknown [id number] 2009 Medicare [id number] 2009 [place] [address] [id number] 2009 Medicare [id number] 1959 Self-pay 1945 Unknown [id number] 1944 Unknown [id number] 1944 Unknown [id number] 1944 Unknown [id number] Unknown [id number] Unknown [id number] Unknown [id number] Unknown [id number] Unknown [id number] Social History Date Type Detail Facility Unknown if ever smoked [facility] Other Start: 05-23-2023 End: 12-30-2023 Sex Assigned At [facility] Start: 1945 Sex Assigned At Female [facility] Start: 10-15-2022 End: 08-11-2023 Tobacco smoking status NHIS Ex-smoker (finding) [facility] Start: 03-04-1999 End: 03-04-2014 History of tobacco use Current smoker [facility] Start: 03-04-1999 End: 03-04-2014 History of tobacco use Cigarette Smoker [facility] Start: 10-15-2022 End: 12-30-2023 Cigarettes smoked current (pack per day) - Reported 0.5 [facility] Start: 10-15-2022 Tobacco use and exposure Smokeless tobacco non-user [facility] Start: 05-23-2023 End: 12-30-2023 Alcoholic beverage intake Lifetime non-drinker (finding) [facility] How often to you have a drink containing alcohol? Never [facility] How many standard drinks containing alcohol do you have on a typical day? Patient does not drink [facility] Start: 10-11-2022 Alcohol Comment Caffeine: 1-2 cups/day 8 oz of pop daily, unsweetened tea [facility] Start: 1945 Sex assigned at Not on file [facility] NEGATED: Highlighted rowStart: NINF History of tobacco use Passive smoker [facility] History of Present illness Narrative 12-30-2023 Gaetano Faye NP - 12/30/2023 11:15 AM EDT Note Date & Type Note Facility 12-30-2023 History of Presen t illness Narrative Images from the original note were not included. Coral Juan is a 78 y.o. female presents with chief complaint of 6 mos ov MWV (Patient presents for 6 mos MWV and to review labs ) HPI: HPI I have reviewed and reconciled the history and medication list with the patient today. 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 Ko-3 pins placed SOCIAL HISTORY: Social History Tobacco Use Smoking status: Former Current packs/day: 0.00 Average packs/day: 0.5 packs/day for 15.0 years (7.5 ttl pk-yrs) Types: Cigarettes Start date: 1999 Quit date: 2014 Years since quittin.8 Passive exposure: Never Smokeless tobacco: Never Substance Use Topics Alcohol use: Never Comment: Caffeine: 1-2 cups/day 8 oz of pop daily, unsweetened tea Drug use: Never Depression: Not at risk (12/30/2023) PHQ-2 PHQ-2 Score: 0 FAMILY HISTORY: Family History Problem Relation Name Age of Onset Hypertension Father Cancer Father Diabetes Father Atrial fibrillation Son No Known Problems Son No Known Problems Daughter MEDICATIONS: Current Outpatient Medications Medication Instructions acetaminophen (TYLENOL) 325 mg, Every 6 hours PRN aspirin (ASPIRIN EC LOW STRENGTH) 81 mg, Daily atorvastatin (LIPITOR) 10 mg, Oral, Nightly Calcium Citrate-Vitamin D (CALCIUM CITRATE +D PO) 650 mg, Daily clobetasol (Temovate) 0.05 % ointment 1 application , 2 times daily PRN famotidine (PEPCID) 20 mg, Oral, Nightly lisinopril 5 mg, Oral, Daily omeprazole (PriLOSEC) [address] capsule TAKE 1 CAPSULE BY MOUTH EVERY MORNING BEFORE MEALS. DO NOT CRUSH OR CHEW ALLERGIES: Allergies Allergen Reactions Bee Venom Swelling Passed out Immunization History Administered Date(s) Administered Influenza, High-dose Seasonal, Quadrivalent, Preservative Free 12/05/2020, 11/24/2021 Influenza, Seasonal, Quadrivalent, Adjuvanted 11/20/2022 Influenza, trivalent, adjuvanted 12/30/2023 Moderna SARS-CoV-2 Vaccination 04/11/2020, 05/10/2020, 12/28/2020 Pneumococcal Conjugate PCV 13 02/05/2017 Pneumococcal Polysaccharide PPSV23 02/10/2016 SARS-COV-2 (COVID-19) vaccine, mRNA, spike protein, LNP, PF, 50 mcg/0.5 mL 11/27/2022, 11/11/2023 SARS-COV-2 (COVID-19) vaccine, mRNA, spike protein, LNP, bivalent, PF 11/10/2021 Td (adult), 5 Lf tetanus toxoid, preservative free, adsorbed 09/10/2017 REVIEW OF SYMPTOMS: Review of Systems Constitutional: Negative for chills, diaphoresis, fatigue and fever. HENT: Negative for ear pain, hearing loss, sinus pressure, sore throat and trouble swallowing. Eyes: Negative for pain and discharge. Respiratory: Negative for cough and shortness of breath. Cardiovascular: Negative for chest pain, palpitations and leg swelling. Gastrointestinal: Negative for abdominal pain, blood in stool, constipation and diarrhea. Genitourinary: Negative for difficulty urinating. Musculoskeletal: Negative for arthralgias and gait problem. Skin: Negative for rash. Neurological: Negative for dizziness, light-headedness and headaches. Psychiatric/Behavioral: Negative for sleep disturbance. PHYSICAL EXAM: Visit Vitals BP 140/64 Pulse 71 Ht 5' 2.5 Wt 117 lb SpO2 96% BMI 21.06 kg/m Smoking Status Former BSA 1.53 m BP Readings from Last 3 Encounters: 12/30/23 140/64 05/23/23 164/82 03/27/23 122/68 Wt Readings from Last 3 Encounters: 12/30/23 117 lb 05/23/23 112 lb 03/27/23 110 lb Physical Exam Constitutional: General: She is awake. She is not in acute distress. Appearance: She is well-developed. HENT: Head: Normocephalic. Right Ear: Tympanic membrane normal. Left Ear: Tympanic membrane normal. Nose: Nose normal. Mouth/Throat: Mouth: Mucous membranes are moist. Pharynx: Oropharynx is clear. Eyes: Extraocular Movements: Extraocular movements intact. Neck: Thyroid: No thyromegaly. Vascular: No carotid bruit. Cardiovascular: Rate and Rhythm: Normal rate and regular rhythm. Pulses: Posterior tibial pulses are 1+ on the right side and 1+ on the left side. Heart sounds: Normal heart sounds. No murmur heard. No gallop. Pulmonary: Effort: Pulmonary effort is normal. No respiratory distress. Breath sounds: Normal breath sounds. No wheezing, rhonchi or rales. Chest: Chest wall: No mass, deformity, swelling or tenderness. Breasts: Right: Normal. Left: Normal. Abdominal: General: Bowel sounds are normal. There is no distension. Palpations: Abdomen is soft. There is no hepatomegaly, splenomegaly or mass. Tenderness: There is no abdominal tenderness. Musculoskeletal: General: Normal range of motion. Cervical back: Normal range of motion and neck supple. No rigidity or tenderness. Thoracic back: Deformity present. Right lower leg: No edema. Left lower leg: No edema. Comments: Dorsal kyphosis Lymphadenopathy: Cervical: No cervical adenopathy. Upper Body: Right upper body: No supraclavicular or axillary adenopathy. Left upper body: No supraclavicular or axillary adenopathy. Skin: General: Skin is warm and dry. Neurological: Mental Status: She is alert and oriented to person, place, and time. Motor: No weakness. Gait: Gait is intact. Psychiatric: Mood and Affect: Mood normal. Mood is not anxious or depressed. Behavior: Behavior is cooperative. Thought Content: Thought content normal. Cognition and Memory: Cognition normal. Judgment: Judgment normal. ASSESSMENT AND PLAN: Assessment/Plan Diagnoses and all orders for this visit: Encounter for subsequent annual wellness visit (AWV) in Medicare patient -A wellness visit was completed with the patient today by Gaetano Faye NP. Demographics updated. The past medical history, family history, and social history reviewed and updated. The medication list (including supplements) has been reconciled. -A list of other providers involved with the patient's care and any durable medical goods providers documented. -Depression screening was completed and addressed as indicated. Cognitive function was assessed by direct observation and assessment of ability to perform ADLs and iADLs was done. As well as Mini-Cog assessment. -We reviewed, and discussed as indicated, safety issues, including falls risk assessment. -Time was spent reviewing and discussing age-appropriate screenings, immunizations and indicated laboratory monitoring. -We discussed Advanced Directives and code status and this information was updated in the chart. -BMI was assessed. Educational handout with tips for healthy diet, exercise and lifestyle modifications that will promote achieving or maintaining a healthy weight provided. The BMI will be monitored at routine office appointments as well . -Major risk factors for heart disease were identified and modifiable risk factors discussed. -A Care Plan ( Report card ) was provided to patient at the end of the appointment. Included in this is recommendations for when any testing or immunizations need to be repeated. Essential hypertension (CMS/HCC) - Microalbumin / creatinine urine ratio; Future - Comprehensive metabolic panel; Future ACP (advance care planning) -Full code Hyperlipidemia LDL goal <130 ([facility]) - Lipid panel; Future Iron deficiency anemia, unspecified iron deficiency anemia type - CBC; Future LPRD (laryngopharyngeal reflux disease) Need for immunization against influenza - Flu vaccine, trivalent, adjuvanted, preservative free Medication management - CBC; Future Dictated, but not read Patient presents today for a routine office visit and Medicare wellness examination. She s able to draw a Clock and remember her three words. She denies depression or falls. She s able to get up from the chair without using the arms of the chair. She does have a living will and a healthcare, power of civil attorney. She wishes to be a full code. She has had Cologuards which are negative. She no longer wants to do those. She declines DEXA scans. She did have a mammogram today and also a breast exam. She is up-to-date on all of her vaccines. She does not want to get a shingles vaccine. CBC is within normal limits. Comprehensive metabolic profile is normal. Thyroid is normal. Lipid panel. LDL is at goal at 84 on statin therapy. She takes Pepcid 20 mg once a day. She has no other issues today. ROS is negative. Physical exam is within normal limits except for the dorsal kyphosis. She ll return here in six months or sooner if needed. Dr. Nguyen was present in office suite today and is supervising patient care and available for consult. I'm following his plan of care for the above problems. Previous notes and plan were reviewed and followed. Gaetano Faye, MSN, COAL DUMPING EQUIPMENT OPERATOR-BUTTONHOLE MARKER documented in this encounter [facility] Evaluation note 01-30-2023 Note Date & Type Note Facility 01-30-2023 Evaluation note Encounter Date Diagnosis Assessment Notes Jan, Right foot pain (ICD-10 - M79.671) Jan, Contusion of right foot, initial encounter (ICD-10 - S90.31XA) Continue home medications as prescribed. Ice and elevate your foot 2-3 times a day. Take Tylenol or Motrin as needed for pain. Follow-up with your family physician if no improvement in 5 to 7 days Jan, Other Contusion material was printed [facility] Other Evaluation note 09-08-2022 Note Date & Type Note Facility 09-08-2022 Evaluation note Encounter Date Diagnosis Assessment Notes Sep, Poison yash (ICD-10 - L23.7) Poison yash allergy home care material was printed Drink plenty fluids, get plenty of rest. Continue home medications as prescribed. Take the prednisone as prescribed until gone. Take Benadryl as needed for itching. Follow-up with your family physician if no improvement in 2 to 3 days [facility] Other Evaluation note 09-09-2021 Note Date & Type Note Facility 09-09-2021 Evaluation note Encounter Date Diagnosis Assessment Notes Sep, Poison yash dermatitis (ICD-10 - L23.7) Contact dermatitis home care material was printed Drink plenty fluids, get plenty of rest. Take the prednisone as prescribed until gone. You may take Benadryl as needed for itching and redness. You may use calamine lotion to the rash as well. Follow-up with your family physician if no improvement in 2 to 3 days. [facility] Other History general Narrative - Reported 05-24-2016 Note Date & Type Note Facility 05-24-2016 History general N arrative - Reported Type Medical History hyperlipidemia Medical History fx left hip Surgical History C section Surgical History cataracts Surgical History 3 pins in left hip 05/24/2016 Hospitalization History See above [facility] Other History general Narrative - Reported 05-24-2016 Note Date & Type Note Facility 05-24-2016 History general N arrative - Reported Type Medical History hyperlipidemia Medical History fx left hip Surgical History C section x3 Surgical History cataracts Surgical History 3 pins in left hip 05/24/2016 Hospitalization History See above [facility] Other Evaluation note Note Date & Type Note Facility Evaluation note No assessment information availa [facility] Work Phone: Evaluation note Note Date & Type Note Facility Evaluation note Diagnosis Encounter for subsequent annual wellness visit (AWV) in Medicare patient- Primary Essential hypertension (CMS/HCC) Unspecified essential hypertension ACP (advance care planning) Other specified counseling Hyperlipidemia LDL goal <130 (CMS/HCC) Other and unspecified hyperlipidemia Iron deficiency anemia, unspecified iron deficiency anemia type LPRD (laryngopharyngeal reflux disease) Acute laryngitis, without mention of obstruction Need for immunization against influenza Need for prophylactic vaccination and inoculation against influenza Medication management documented in this encounter [facility] Summary Purpose Family History No Family History Records Found Relationship Condition Age at Onset Recorded Date/T chetan brother Unknown father History of stroke Unknown Unknown Not Specified Congestive heart failure Unknown Heart disease Unknown Relationship Condition Age at Onset Recorded Date/T chetan brother Unknown father History of stroke Unknown Unknown mother Congestive heart failure Unknown Heart disease Unknown Advance Directives No Advanced Directives Records Found Advance Directive Response Recorded Date/ Time Advance Directives Yes November 2:32pm Advance Directive Response Recorded Date/ Time Advance Directives Yes November 1:32pm Date Activated Date Inactivated Comments 11/20/2022 12:05 PM Date Activated Date Inactivated Comments 12/30/2023 12:15 PM Date Activated Date Inactivated Comments 11/20/2022 12:05 PM 12/30/2023 12:15 PM Chief Complaint and Reason for Visit Chief Complaint Screening Chief Complaint Poison yash on face Additional Source Comments INFORMATION SOURCE (unrecogn ized section and content) DATE CREATED AUTHOR 01/17/2021 [facility] DATE CREATED AUTHOR AUTHOR'S ORGANIZ ATION 12/23/2023 [facility] DATE CREATED AUTHOR AUTHOR'S ORGANIZ ATION 01/05/2024 [facility] EPIC REASON FOR VISIT (unrecogniz ed section and content) Reason Comments 6 mos ov MWV Patient presents for 6 mos MWV and to review labs Care Teams (unrecognized sec tion and content) Team Status: Inactive Member Role Status Dates Apolinar Nguyen DO Primary Care Provider Active Referral Self Attending Provider Active Team Status: Active Member Role Status Dates Apolinar Nguyen DO Primary Care Provider Active Team Status: Inactive Member Role Status Dates Apolinar Nugyen DO Primary Care Provider Active Gaetano Faye RN MSN ANP-C Attending Provider Act francisca Team Status: Inactive Member Role Status Dates Apolinar Nguyen DO Primary Care Provider Active LAWRENCE ThackerC Attending Provider Active Team Status: Inactive Member Role Status Dates Apolinar Nguyen DO Primary Care Provider Active Start: August 11, 2023 End: August 11, 2023 Kalli Lawrence , ARUN Attending Provider Active S tart: August 11, 2023 End: August 11, 2023 Team Status: Inactive Member Role Status Dates Apolinar Nguyen DO Primary Care Provider Active Start: December 17, 2023 End: December 17, 2023 Referral Self Attending Provider Active Start: O ctober 2023 End: December 17, 2023 [employer] Relationship Specialty Start Date End Date Apolinar Nguyen DO [address] [place] [address] PCP - General Internal Medicine 08/01/22 Apolinar Nguyen DO [address] [place] [address] PCP - ACO Reach 07/03/23 [employer] Relationship Specialty Start Date End Date Apolinar Nguyen DO [address] [place] [address] PCP - General Internal Medicine 08/01/22 Apolinar Nguyen DO [address] [place] [address] PCP - ACO Reach 07/03/23 Goals (unrecognized section and content) Goals may be documented in a n alternate section FOR RECORDS PERTAINING TO PATIENTS WHO ARE OR HAVE BEEN ENROLLED IN A CHEMICAL DEPENDENCY/SUBSTANCEABUSE PROGRAM, SOME INFORMATION MAY BE OMITTED. This clinical summary was aggregated from multiple sources. Caution should be exercised in using it in the provision of clinical care. This summary normalizes information from multiple sources, and as a consequence, information in this document may materially change the coding, format and clinical context of patient data. In addition, data may be omitted in some cases. CLINICAL DECISIONS SHOULD BE BASED ON THE PRIMARY CLINICAL RECORDS. [employer] provides no warranty or guarantee of the accuracy or completeness of information in this document.
[2024-06-11 08:50] LABS: Basophils Absolute Auto 0.1 10^3/uL (0.0-0.1); Basophils Percent Auto 1.7 % (0.2-2.0); Eosinophils Absolute Auto 0.4 10^3/uL (0.0-0.7); Eosinophils Percent Auto 6.1 % (0.9-7.0); Hematocrit 35.6 % (36.0-48.0); Hemoglobin 11.5 g/dL (12.0-16.0); Immature Granulocytes Abs Auto 0.01 10^3/uL (0.00-0.03); Immature Granulocytes Pct Auto 0.2 % (0.0-0.5); Lymphocytes Absolute Auto 1.5 10^3/uL (1.2-3.8); Mean Corpuscular HGB Conc 32.3 g/dL (29.9-35.2); Mean Corpuscular Hemoglobin 28.5 pg (26.7-34.0); Mean Corpuscular Volume 88.3 fL (81.0-99.0); Mean Platelet Volume 9.8 fL (9.5-13.5); Monocytes Absolute Auto 0.5 10^3/uL (0.3-0.8); Monocytes Percent Auto 8.8 % (1.7-12.0); Neutrophils Absolute Auto 3.3 10^3/uL (1.4-6.5); Neutrophils Percent Auto 57.2 % (43.0-75.0); Platelet Count 203 10^3/uL (150-450); Red Blood Count 4.03 10^6/uL (4.20-5.40); Red Cell Distribution Width 14.3 % (11.0-15.0); White Blood Count 5.8 10^3/uL (4.0-11.0)
[2024-06-11 10:37] LABS: Creatinine Urine Random 25.77 mg/dL (20.00-300.00); Microalbumin Urine Random <1.3 mg/dL (<=30.0)
[2024-06-11 10:47] LABS: Alanine Aminotransferase 17 U/L (14-59); Albumin Globulin Ratio 1.1; Alkaline Phosphatase 78 U/L (46-116); Anion Gap 11.5; Aspartate Amino Transferase 20 U/L (15-37); BUN Creatinine Ratio 19.1; Bilirubin Total 1.2 mg/dL (0.2-1.0); Calcium 9.3 mg/dL (8.5-10.1); Carbon Dioxide 28.4 mmol/L (21.0-32.0); Chloride 102 mmol/L (98-107); Chol HDL Ratio 2.8; Cholesterol 190 mg/dL (<=200); Estimated GFR (African America 55 (>=60 mL/min/1.73m^2); Estimated GFR (Non-African Ame 45 (>=60 mL/min/1.73m^2); Globulin 3.8 g/dL; Glucose 95 mg/dL (74-106); HDL Cholesterol 67 mg/dL (40-60); Potassium 3.9 mmol/L (3.5-5.1); Sodium 138 mmol/L (136-145); Total Protein 7.8 g/dL (6.4-8.2); Triglycerides 105 mg/dL (<=150)
== END 2024-06-11 08:33 | disposition home or self-care (01) ==
PROVIDERS: PCP Family Medicine; Visit Provider Nurse Practitioner Adult Health
DX: E78.5 Hyperlipidemia, unspecified (principal); I10 Essential (primary) hypertension; D50.9 Iron deficiency anemia, unspecified; Z79.899 Other long term (current) drug therapy
CPT/HCPCS: 36415; 80053; 80061; 82043; 82570; 85025

== ENCOUNTER 2024-12-10 07:46 | Outpatient (OUT) | payer MEDICARE, SELFPAY ==
--- OUTSIDE RECORDS SUMMARY | 2024-12-10 08:16 | XMS_ITS | CCD ---
Author Organization [facility] Care Team Providers Care Sander [employer]enc[employer] Name Role Phone ZACHARY VERA Consulting Unavailable REQUEST, NONE LISTED Attending Unavaila ble REQUEST, NONE LISTED Admitting Unavaila ble REQUEST, NONE LISTED Attending Unavaila ble REQUEST, NONE LISTED Consulting Unavaila ble REQUEST, NONE LISTED Admitting Unavaila ble ZACHARY VERA Attending Unavailable ZACHARY VERA Consulting Unavailable ZACHARY VERA Admitting Unavailable Kasia Meza Unavailable DO Apolinar Vasquez Primary Care Provider [phone] Self, Referral Attending Provider Unavailable DO Apolinar Vasquez Primary Care Provider [phone] LBANCA Faye Attending Provider [phone] DO Apolinar Vasquez Primary Care Provider BLANCA Faye Attending Provider [phone] SENTHIL Meza Attending Provider [phone] DO Apolinar Vasquez Primary Care Provider [phone] Self, Referral Attending Provider Unavailable Kasia Meza Admitting Unavailable Kasia Meza Attending Unavailable Apolinar Vasquez Primary Care Unavailable Self, Referral Admitting Unavailable Self, Referral Attending Unavailable Apolinar Vasquez Primary Care Unavailable Apolinar Vasquez DO Primary Care Provider [phone] Apolinar Vasquez DO Unavailable APOLINAR VASQUEZ Attending Unavailable SIERRA ORTIZ Attending Unavailable APOLINAR VASQUEZ Referring Unavailable GAETANO FAYE Attending Unavailable SIERAR ORTIZ Attending Unavailable Allergies Allergy Classification Reported Allergen(s) Allergy Type Date of Onset Reaction(s) Facility (12 sources) Honey bee venom Propensity to adverse reactions [address] [place] [address] Work Phone: Medications Current Medications Medication Drug Class(es) Dates Sig (Normalized) Sig (Original) acetaminophen 325 mg oral capsule (15 sources) take 1 capsule by mouth every six hours as needed acetaminophen (Tylenol) 325 MG capsule Take 325 mg by mouth every 6 (six) hours if needed Active tylenol 1 tab Or al Active aspirin 81 mg delayed release oral tablet (17 sources) Platelet Aggregation Inhibitor, Nonsteroidal Anti-inflammatory Drug Start: 08-11-2023 Aspirin (Adult Lo w Dose Aspirin) 81 mg tablet,delayed release (DR/EC) Active 81 MG PO Daily August 11, 2023 12:00am take 1 tablet by luis th every twenty-four hours Aspirin 81 MG 1 tablet Orally Once a day Active atorvastatin 10 mg oral tablet (17 sources) HMG-CoA Reductase Inhibitor Start: 07-24-2024 atorvastatin (Lipito r) 10 MG tablet Indications: Hyperlipidemia LDL goal TAKE 1 TABLET AT BEDTIME 90 tablet 3 07/24/2024 Active Start: 06-20-2023 take 1 tablet by luis th at bedtime atorvastatin (Lipitor) 10 MG tablet Indications: Hyperlipidemia LDL goal Take 1 tablet (10 mg) by mouth at bedtime 90 tablet 3 06/20/2023 Active take 1 tablet by luis th every twenty-four hours Lipitor 20 MG 1 tablet Orally Once a day Active R46-[id number] 1 MG (3 sources) P05-Sexjon 1 MG Orally Not-Taking calcium carbonate 1250 mg oral tablet (3 sources) take 1 tablet by mouth every twelve hours Calcium 500 MG 1 tablet with meals Orally Twice a day Active calcium citrate 1500 mg / cholecalciferol 200 unt oral tablet (2 sources) Vitamin D Start: 08-11-2023 take 1 tablet by mouth twice daily Calcium Citrate-Vitamin D3 (Calcium Citrate + D) 315 mg-5 mcg (200 unit) tablet Active 1 TAB PO Twice daily August 11, 2023 12:00am Calcium Citrate / Vitamin D (12 sources) take 650 mg by mouth once in the morning Calcium Citrate-Vitamin D (CALCIUM CITRATE +D PO) Take 650 mg by mouth in the morning and 650 mg before bedtime. Active take 650 mg by mouth once daily Calcium Citrate-Vitamin D (CALCIUM CITRATE +D PO) Take 650 mg by mouth 1 (one) time each day Active cholecalciferol 0.05 mg oral tablet (3 sources) Vitamin D End: 12-30-2023 take 1 tablet by mouth in the morning cholecalciferol (Vitamin D-3) 50 MCG (2000 UT) tablet Take 1 tablet by mouth in the morning. 12/30/2023 Discontinued clobetasol propionate 0.0005 mg/mg topical ointment (9 sources) Corticosteroid End: 06-16-2024 clobetasol (Temovate) 0.05 % ointment 1 application 2 (two) times a day as needed. 06/16/2024 Discontinued (Therapy completed) Temovate Active Cranberry-Vitamin C-Probiotic (AZO CRANBERRY PO) (8 sources) Cranberry-Vitami n C-Probiotic (AZO CRANBERRY PO) Take by mouth Active famotidine 20 mg oral tablet (8 sources) Histamine-2 Receptor Antagonist Start: 2023 End: 2024 take 1 tablet by mouth at bedtime famotidine (Pepcid) 20 MG tablet Indications: LPRD (laryngopharyngeal reflux disease) Take 1 tablet (20 mg) by mouth at bedtime 90 tablet 3 07/23/2023 06/16/2024 Discontinued (Therapy completed) Lactobacillus Combination No.9 (Adult 50 Plus Probiotic) 4 billion cell capsule (2 sources) Start: 2023 take 4 capsules by mouth once daily Lactobacillus Combination No.9 (Adult 50 Plus Probiotic) 4 billion cell capsule Active 4000 MMU CELLS PO Daily August 11, 2023 12:00am administer with a meal lisinopril 5 mg oral tablet (14 sources) Angiotensin Converting Enzyme Inhibitor Start: 2023 take 1 tablet by mouth once daily [...] Orally Active omeprazole 40 mg oral tablet (8 sources) Proton Pump Inhibitor Start: take 40 mg by mouth once daily Omeprazole Active 40 MG PO Daily August 11, 2023 12:00am Start: 07-23-2023 End: 06-16-2024 take 1 capsule by mouth once daily before mealtime omeprazole (PriLOSEC) [address] capsule Indications: LPRD (laryngopharyngeal reflux disease) TAKE 1 CAPSULE BY MOUTH EVERY MORNING BEFORE MEALS. DO NOT CRUSH OR CHEW 90 capsule 3 07/23/2023 06/16/2024 Discontinued (Side effects) pantoprazole 40 mg delayed release oral tablet (6 sources) Proton Pump Inhibitor Start: 06-16-2024 take 1 tablet by mouth in the morning pantoprazole (ProtoNix) 40 MG EC tablet Indications: Gastroesophageal Reflux Disease Take 1 tablet (40 mg) by mouth in the morning. Do not crush, chew, or split. 90 tablet 1 06/16/2024 Active predniSONE 20 mg oral tablet (6 sources) Start: 08-11-2023 take 20 mg by mouth twice daily Prednisone Active 20 MG PO Twice daily 10 August 11, 2023 12:00am Start: 09-09-2021 take 1 tablet by luis th every twelve hours predniSONE 20 MG 1 tablet Orally bid for 5 day(s) Sep, Not-Taking Probiotic Product (PROBIOTIC DAILY PO) (8 sources) Probiotic Produc t (PROBIOTIC DAILY PO) Take by mouth Daily Active triamcinolone acetonide 0.25 mg/ml topical cream (1 [...] Problem Classification Problem Date Documented Date Episodic/Chronic Allergic reactions (3 sources) Allergic contact dermatitis due to plants, except food; Translations: [Contact dermatitis due to poison yash] Onset: 09-09-2021 Resolved: 09-09-2021 Episodic Chronic kidney disease (10 sources) Chronic kidney disease stage 3A ; Translations: [Stage 3a chronic kidney disease (HCC) ([facility]/HCC)] Onset: 06-16-2024 06-16-2024 Chronic Disorders of lipid metabolism (16 sources) Hyperlipidemia; Translations: [Hyperlipidemia, unspecified] Onset: 07-05-2014 10-08-2022 Chronic Esophageal disorders (16 sources) Laryngopharyngeal reflux; Translations: [Gastro-esophageal reflux disease without esophagitis] Onset: 10-26-2022 10-26-2022 Chronic Essential hypertension (15 sources) Essential hypertension; Translations: [Essential (primary) hypertension] [...] influenza immunization] Onset: 12-28-2020 Episodic Nutritional deficiencies (14 sources) Vitamin D deficiency; Translations: [Vitamin D deficiency, unspecified] Onset: 06-07-2016 10-08-2022 Chronic Osteoporosis (14 sources) Osteoporosis; Translations: [Age-related osteoporosis without current pathological fracture] Onset: 07-14-2015 10-08-2022 Chronic Other connective tissue disease (1 source) Pain in right foot Episodic Other skin disorders (2 sources) Lesion of skin of face; Translations: [Disorder of the skin and subcutaneous tissue, unspecified] 06-16-2024 Episodic Other skin disorders (4 sources) Seborrheic keratosis; Translations: [Other seborrheic keratosis] 07-16-2024 Episodic Other skin disorders (4 sources) Actinic keratosis; Translations: [Actinic keratosis] 07-16-2024 Episodic Other skin disorders (2 sources) Lentiginosis; Translations: [Other melanin hyperpigmentation] 08-27-2024 Episodic Other skin disorders (2 sources) Inflamed seborrheic keratosis; Translations: [Inflamed seborrheic keratosis] 08-27-2024 Episodic Superficial injury; contusion (1 source) Contusion of right foot, initial encounter Episodic Unclassified (1 source) Pain in right foot; Translations: [Pain in right foot] Onset: 01-30-2023 Past or Other Problems Problem Classification Problem Date Documented Da te Episodic/Chronic Administrative/social admission (20 sources) Patient encounter status; Translations: [Other specified counseling] Onset: 11-20-2022 Resolved: 05-23-2023 03-27-2023 Episodic Deficiency and other anemia (14 sources) Iron deficiency anemia; Translations: [Iron deficiency anemia, unspecified] Onset: 05-23-2023 05-23-2023 Episodic Genitourinary symptoms and ill-defined conditions (12 sources) Dysuria; Translations: [Dysuria] Onset: 08-01-2022 Resolved: 03-27-2023 03-27-2023 Episodic Inflammatory diseases of female pelvic organs (12 sources) Acute vaginitis; Translations: [Acute vaginitis] Onset: 08-01-2022 Resolved: 11-20-2022 11-20-2022 Episodic Menopausal disorders (12 sources) Atrophic vaginitis; Translations: [Postmenopausal atrophic vaginitis] Onset: 08-01-2022 Resolved: 11-20-2022 11-20-2022 Chronic Mood disorders (11 sources) Mood disorders Onset: 12-30-2023 12-30-2023 Other circulatory disease (12 sources) Prehypertension; Translations: [Elevated blood-pressure reading, without diagnosis of hypertension] Onset: 03-26-2023 Resolved: 12-30-2023 03-26-2023 Episodic Other screening for suspected conditions (not mental disorders or infectious disease) (13 sources) Encounter for screening mammogram for malignant neoplasm of breast; Translations: [Patient encounter status] Onset: 10-15-2022 Resolved: 03-27-2023 03-27-2023 Episodic Other upper respiratory disease (12 sources) Hoarse; Translations: [Dysphonia] Onset: 10-15-2022 Resolved: 03-27-2023 03-27-2023 Episodic Other upper respiratory disease (12 sources) Polyp of vocal cord ; 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] Onset: 10-26-2022 Resolved: 05-23-2023 05-23-2023 Episodic Results Test Name Value Interpretation Reference Range Facility No Panel Informationon 08-27 [facility] No Panel Informationon 07-16 [facility] ALL CBC WITH AUTO DIFFon BASOPHILS ABSOLUTE AUTO 0.1 [facility] Basophils/100 WBC (Bld) 1.7 % 0.2 - 2.0 % [facility] Eosinophils/100 WBC (Bld) 6.1 % 0.9 - 7.0 % [facility] Erythrocyte distribution width (RBC) [Ratio] 14.3 % 11.0 - 15.0 % [facility] Hematocrit (Bld) [Volume fraction] 35.6 % Low 36.0 - 48.0 % [facility] Hemoglobin (Bld) [Mass/Vol] 11.5 g/dL Low 12.0 - 16.0 g/dL [facility] IMMATURE GRANULOCYTES ABS AUTO 0.01 [facility] Immature granulocytes/100 WBC (Bld) 0.2 % 0.0 - 0.5 % [facility] Interpretation and review of laboratory results Abnormal [facility] LYMPHOCYTES ABSOLUTE AUTO 1.5 [facility] Lymphocytes/100 WBC (Bld) 26 % 20.5 - 60.0 % [facility] MCH (RBC) [Entitic mass] 28.5 pg 26.7 - 34.0 pg [facility] MCHC (RBC) [Mass/Vol] 32.3 g/dL 29.9 - 35.2 g/dL [facility] MCV (RBC) [Entitic vol] 88.3 fL 81.0 - 99.0 fL [facility] MONOCYTES ABSOLUTE AUTO 0.5 [facility] Monocytes/100 WBC (Bld) 8.8 % 1.7 - 12.0 % [facility] NEUTROPHILS ABSOLUTE AUTO 3.3 [facility] Neutrophils/100 WBC (Bld) 57.2 % 43.0 - 75.0 % [facility] Platelet mean volume (Bld) [Entitic vol] 9.8 fL 9.5 - 13.5 fL [facility] PLT 203 [facility] RBC 4.03 Low [facility] WBC 5.8 [facility] ALL CBC WITH AUTO DIFFon BASOPHILS ABSOLUTE AUTO 0.1 [facility] Basophils/100 WBC (Bld) 1.4 % 0.2 - 2.0 % [facility] Eosinophils/100 WBC (Bld) 2.2 % 0.9 - 7.0 % [facility] Erythrocyte distribution width (RBC) [Ratio] 14.3 % 11.0 - 15.0 % [facility] Hematocrit (Bld) [Volume fraction] 39.5 % 36.0 - 48.0 % [facility] Hemoglobin (Bld) [Mass/Vol] 12.5 g/dL 12.0 - 16.0 g/dL [facility] IMMATURE GRANULOCYTES ABS AUTO 0.01 [facility] Immature granulocytes/100 WBC (Bld) 0.2 % 0.0 - 0.5 % [facility] LYMPHOCYTES ABSOLUTE AUTO 1.5 [facility] Lymphocytes/100 WBC (Bld) 27.6 % 20.5 - 60.0 % [facility] MCH (RBC) [Entitic mass] 28.5 pg 26.7 - 34.0 pg [facility] MCHC (RBC) [Mass/Vol] 31.6 g/dL 29.9 - 35.2 g/dL [facility] MCV (RBC) [Entitic vol] 90 fL 81.0 - 99.0 fL [facility] MONOCYTES ABSOLUTE AUTO 0.5 [facility] Monocytes/100 WBC (Bld) 8.5 % 1.7 - 12.0 % [facility] NEUTROPHILS ABSOLUTE AUTO 3.3 [facility] Neutrophils/100 WBC (Bld) 60.1 % 43.0 - 75.0 % [facility] Platelet mean volume (Bld) [Entitic vol] 10.8 fL 9.5 - 13.5 fL [facility] EO # 0.1 [facility] TB PLT 189 [facility] TB[facility] RBC 4.39 [facility] WBC 5.6 [facility] MM screening mammo BI w/CADo n 12-17-2023 MM screening mammo BI w/CAD [facility] [place] [place] [address] Mammography Report Signed Patient: Coral Juan MR#: [id number] : 1945 Acct:[id number] Age/Sex: 78 / F ADM Date: 12/17/23 Loc: [place] Room: Type: [facility] Attending Dr: Referral Self Copies to: Aploinar Vasquez, SELF,REFERRAL Ordering Provider: SELF,REFERRAL Date of Service: [...] Merritt Quiroz M.D.12/17/2023 2:27 PM Dictation Location: [facility] Transcribed By: MERY 12/17/231426 Dictated By: Merritt Quiroz II, MD 12/17/231421 Signed By: 12/17/23 142 Normal [facility] XR foot RT min 3V*on 023 XR foot RT min 3V* [facility] [place] [address] XRay Report Signed Patient: Coral Juan MR#: [id number] : 1945 Acct:[id number] Age/Sex: 77 / F ADM Date: 01/30/23 Loc: XDUCLY Room: Type: [facility] Attending Dr: Kasia NDIAYE Copies to: SENTHIL Mccrary Ordering Provider: [...] Coral Deleon M.D.01/30/2023 3:18 PM Dictation Location: [place] [address] Transcribed By: [facility] 01/30/23 1518 Dictated By: Coral Deleon MD 01/30/23 151 Signed By: 01/30/23 151 Normal [facility] XR foot RT min 3V* [facility] [employer] Other XR foot RT min 3V* [facility] Main [facility] [employer] Other XR foot RT min 3V* [address] [place] [address] [email or web address] Other XR foot RT min 3V* [place] [address] [email or web address] Other XR foot RT min 3V* XRay Report [email or web address] Other XR foot RT min 3V* Signed [email or web address] Other XR foot RT min 3V* Patient: Coral Juan MR#: [id number] [email or web address] Other XR foot RT min 3V* : 1945 Acct:[id number] [email or web address] Other XR foot RT min 3V* Age/Sex: 77 / F ADM Date: 01/30/23 [email or web address] Other XR foot RT min 3V* Loc: XDUCLY Room: Type: REG CLI [email or web address] Other XR foot RT min 3V* Attending Dr: Kasia NDIAYE [email or web address] Other XR foot RT min 3V* Copies to: SENTHIL Mccrary [email or web address] Other XR foot RT min 3V* Ordering Provider: SENTHIL Mccrary [email or web address] Other XR foot RT min 3V* Date of Service: 01/30/23 [email or web address] Other XR foot RT min 3V* XR/XR foot RT min 3V*: Right foot pain [email or web address] Other XR foot RT min 3V* RIGHT FOOT - 3 views [email or web address] Other XR foot RT min 3V* CLINICAL DATA: Patient dropped a board onto her foot 3 days ago and has pain and bruising at the [email or web address] Other XR foot RT min 3V* distal second through fourth metatarsals [email or web address] Other XR foot RT min 3V* COMPARISON: None [email or web address] Other XR foot RT min 3V* AP, lateral and oblique views were obtained. Minor irregularity is seen at the articular aspect of [email or web address] Other XR foot RT min 3V* the head of the second metatarsal. This could be degenerative or AVN (Freiberg's infraction). [email or web address] Other XR foot RT min 3V* There is also minor chronic appearing deformity at the head of the proximal phalanx of the fifth [email or web address] Other XR foot RT min 3V* toe. There is no definite acute fracture or dislocation. A small plantar calcaneal spur is seen. [email or web address] Other XR foot RT min 3V* There are no significant soft tissue abnormalities. [email or web address] Other XR foot RT min 3V* XR/XR foot RT min 3V* [email or web address] Other XR foot RT min 3V* IMPRESSION: [email or web address] Other XR foot RT min 3V* NO ACUTE BONY INJURY. [email or web address] Other XR foot RT min 3V* Impression dictated by: Coral Deleon M.D.01/30/2023 3:18 PM [email or web address] Other XR foot RT min 3V* Dictation Location: [place] [address] [email or web address] Other XR foot RT min 3V* Transcribed By: MERY 01/30/23 [facility] [email or web address] Other XR foot RT min 3V* Dictated By: Coral Deleon MD 01/30/23 [facility] [email or web address] Other XR foot RT min 3V* Signed By: [email or web address] Other XR foot RT min 3V* 01/30/[address] [place] [address] [employer] Other Vital Signs Date Time Vital Sign Value Performing Clinician Facility 06-16-2024 11:22-0400 Body height 157.5 cm Apolinar Vasquez DO Work Phone: [facility] 06-16-2024 11:22-0400 Body mass index (BMI) [Ratio] 21.95 kg/m2 Apolinarjon Vasquez DO Work Phone: [facility] [employer] 06-16-2024 11:22-0400 Body weight 54.43 kg Apolinar Vasquez DO Work Phone: [facility] 06-16-2024 11:22-0400 Diastolic blood pressure 82 mm[Hg] Apolinar Patrick DO Work Phone: [facility] 06-16-2024 11:22-0400 Heart rate 80 /min Apolinar Vasquez DO Work Phone: [facility] 06-16-2024 11:22-0400 SaO2% (BldA) [Mass fraction] 99 % Apolinar Vasquez DO Work Phone: [facility] 06-16-2024 11:22-0400 Systolic blood pressure 136 mm[Hg] Apolinar Vasquez DO Work Phone: [facility] 12-30-2023 11:51-0400 Body height 158.8 cm Gaetano Faye MEDIA PROFESSIONAL Work Phone: [facility] 12-30-2023 11:51-0400 Body mass index (BMI) [Ratio] 21.06 kg/m2 Gaetano Faye MEDIA PROFESSIONAL Work Phone: [facility] 12-30-2023 11:51-0400 Body weight 53.07 kg Gaetano Faye MEDIA PROFESSIONAL Work Phone: [facility] 12-30-2023 11:51-0400 Diastolic blood pressure 64 mm[Hg] Gaetano Faye MEDIA PROFESSIONAL Work Phone: [facility] 12-30-2023 11:51-0400 Heart rate 71 /min Gaetano Faye MEDIA PROFESSIONAL Work Phone: [facility] 12-30-2023 11:51-0400 SaO2% (BldA) [Mass fraction] 96 % Gaetano Faye MEDIA PROFESSIONAL Work Phone: [facility] 12-30-2023 11:51-0400 Systolic blood pressure 140 mm[Hg] Gaetano Faye MEDIA PROFESSIONAL Work Phone: [facility] 08-11-2023 12:34-0400 Body height 160.[address] [facility] 08-11-2023 12:34-0400 Body mass index (BMI) [Ratio] 20.5 kg/m2 [facility] 08-11-2023 12:34-0400 Body temperature 97.5 [degF] [facility] 08-11-2023 12:34-0400 Body weight 52.[address] [facility] 08-11-2023 12:34-0400 Diastolic blood pressure 78 mm[Hg] [facility] 08-11-2023 12:34-0400 Heart rate 62 /min [facility] 08-11-2023 12:34-0400 Respiratory rate 16 /min [facility] 08-11-2023 12:34-0400 SaO2% (BldA) [Mass fraction] 99 % [facility] 08-11-2023 12:34-0400 Systolic blood pressure 138 mm[Hg] [facility] 01-30-2023 14:45-0500 Body height 160.02 cm Kasia Butterfieldmond Other [employer] [facility] [employer] Other 01-30-2023 14:45-0500 Body mass index (BMI) [Ratio] 21.43 kg/m2 Kasia Butterfieldmond Other [email or web address] Other 01-30-2023 14:45-0500 Body temperature 100 [degF] Kasia Butterfieldmond Other [email or web address] Other 01-30-2023 14:45-0500 Body weight 54.89 kg Kasia Butterfieldmond Other [email or web address] Other 01-30-2023 14:45-0500 Diastolic blood pressure 83 mm[Hg] Kasia Butterfieldmond Other [email or web address] Other 01-30-2023 14:45-0500 Respiratory rate 18 /min Kasia Butterfieldmond Other [email or web address] Other 01-30-2023 14:45-0500 SaO2% (BldA) [Mass fraction] 95 % Kasia Susana Other [email or web address] Other 01-30-2023 14:45-0500 Systolic blood pressure 165 mm[Hg] Kasia Susana Other [email or web address] Other 09-08-2022 10:15-0400 Body height 160.02 cm Kasia Susana Other [email or web address] Other 09-08-2022 10:15-0400 Body mass index (BMI) [Ratio] 21.57 kg/m2 Kasia Susana Other [email or web address] Other 09-08-2022 10:15-0400 Body temperature 98.9 [degF] Kasia Susana Other [email or web address] Other 09-08-2022 10:15-0400 Body weight 55.25 kg Kasia Susana Other [email or web address] Other 09-08-2022 10:15-0400 Diastolic blood pressure 87 mm[Hg] Kasia Susana Other [email or web address] Other 09-08-2022 10:15-0400 Respiratory rate 18 /min Kasia Susana Other [email or web address] Other 09-08-2022 10:15-0400 SaO2% (BldA) [Mass fraction] 99 % Kasia Susana Other [email or web address] Other 09-08-2022 10:15-0400 Systolic blood pressure 175 mm[Hg] Kasia Susana Other [email or web address] Other 09-09-2021 14:35-0400 Body height 160.02 cm Kasia Susana Other [email or web address] Other 09-09-2021 14:35-0400 Body mass index (BMI) [Ratio] 19.84 kg/m2 Kasia Meza Other [email or web address] Other 09-09-2021 14:35-0400 Body temperature 98.2 [degF] Kasia Meza Other [email or web address] Other 09-09-2021 14:35-0400 Body weight 50.8 kg Kasia Meza Other [email or web address] Other 09-09-2021 14:35-0400 Diastolic blood pressure 83 mm[Hg] Kasia Meza Other [email or web address] Other 09-09-2021 14:35-0400 Respiratory rate 18 /min Kasia Meza Other [email or web address] Other 09-09-2021 14:35-0400 SaO2% (BldA) [Mass fraction] 99 % Kasia Meza Other [email or web address] Other 09-09-2021 14:35-0400 Systolic blood pressure 139 mm[Hg] Kasia Meza Other [email or web address] Other Encounters Encounter Date Encounter Type Care Provider Facility Start: 08-27-2024 End: 08-27-2024 Bamboo flowsheet Sierra Ortiz MD Work Phone: [facility] Start: 08-27-2024 End: 08-27-2024 Bamboo flowsheet Sierra Ortiz MD Work Phone: [facility] Start: 08-27-2024 End: 08-27-2024 Office outpatient visit 15 minutes Sierra Ortiz MD Work Phone: [facility] Comment on above: Seborrheic keratosis (Primary Dx); Lentigines; Actinic keratosis; Seborrheic keratosis, inflamed Start: 08-27-2024 End: 08-27-2024 ambulatory SIERRA ORTIZ Not Available Start: 07-16-2024 End: 07-16-2024 Bamboo flowsheet Sierra Ortiz MD Work Phone: [facility] Start: 07-16-2024 End: 07-16-2024 Bamboo flowsheet Sierra Ortiz MD Work Phone: [facility] Start: 07-16-2024 End: 07-16-2024 Office outpatient new 20 minutes Sierra Ortiz MD Work Phone: [facility] Comment on above: Seborrheic keratosis (Primary Dx); Actinic keratosis Start: 07-16-2024 End: 07-16-2024 ambulatory SIERRA ORTIZ Not Available Start: 06-16-2024 End: 06-16-2024 Office outpatient visit 25 minutes Apolinar Vasquez DO Work Phone: [facility] Comment on above: Essential hypertensi on (CMS/HCC) (Primary Dx); Hyperlipidemia LDL goal <130 (CMS/HCC); Osteoporosis without current pathological fracture, unspecified osteoporosis type (CMS/HCC); Vitamin D deficiency; Gastroesophageal reflux disease without esophagitis; Stage 3a chronic kidney disease (HCC) (CMS/HCC); Skin lesion of face Start: 06-16-2024 End: 06-16-2024 ambulatory APOLINAR VASQUEZ Not Available Start: 06-11-2024 End: 06-11-2024 Clinisync Result Encounter Gaetano Faye NP Work Phone: [facility] Unsolicited Start: 06-11-2024 End: 06-11-2024 Clinisync Result Encounter Gaetano Faye MEDIA PROFESSIONAL Work Phone: [facility] Unsolicited Start: 12-30-2023 End: 12-30-2023 Office outpatient visit 25 minutes Gaetano Faye NP Work Phone: [facility] Comment on above: Encounter for subseq uent annual wellness visit (AWV) in Medicare patient (Primary Dx); Essential hypertension (CMS/HCC); ACP (advance care planning); Hyperlipidemia LDL goal <130 (CMS/HCC); Iron deficiency anemia, unspecified iron deficiency anemia type; LPRD (laryngopharyngeal reflux disease); Need for immunization against influenza; Medication management Start: 12-30-2023 End: 12-30-2023 Patient encounter procedure Gaetano Faye MEDIA PROFESSIONAL Work Phone: [facility] Work Phone: Start: 12-30-2023 End: 12-30-2023 ambulatory GAETANO FAYE Not Available Start: 12-24-2023 End: 12-24-2023 Clinisync Result Encounter Gaetano Faye MEDIA PROFESSIONAL Work Phone: [facility] Unsolicited Start: 12-24-2023 End: 12-24-2023 Clinisync Result Encounter Gaetano Faye MEDIA PROFESSIONAL Work Phone: [facility] Unsolicited Start: 12-17-2023 End: 12-17-2023 ambulatory DO Apolinar Vasquez Work Phone: [facility] Work Phone: Start: 12-17-2023 End: 12-17-2023 Patient encounter procedure DO Apolinar Vasquez Work Phone: [facility] Work Phone: Start: 08-11-2023 End: 08-11-2023 ambulatory [facility] Work Phone: Start: 08-11-2023 End: 08-11-2023 Patient encounter procedure [facility] Work Phone: Start: 01-30-2023 End: 01-30-2023 Patient encounter procedure DO Apolinar Vasquez Work Phone: [facility] Work Phone: Start: 01-30-2023 End: 01-30-2023 ambulatory DO Apolinar Vasquez Work Phone: [facility] Work Phone: Start: 01-30-2023 Office outpatient vi sit 15 minutes Kasia Susana [facility] Start: 11-20-2022 End: 03-27-2023 Patient encounter procedure Gaetano Faye MEDIA PROFESSIONAL [facility] Phone: [facility] Start: 11-13-2022 End: 11-13-2022 ambulatory DO Apolinar Vasquez Work Phone: [facility] Work Phone: Start: 11-13-2022 End: 11-13-2022 Patient encounter procedure DO Apolinar Vasquez Work Phone: [facility] Work Phone: Start: 09-08-2022 End: 09-08-2022 ambulatory Kasia Meza Other [email or web address] Other Start: 09-08-2022 Office outpatient vi sit 15 minutes Kasia Susana [facility] Start: 11-10-2021 End: 11-10-2021 Patient encounter procedure DO Apolinar Vasquez Work Phone: [facility] Start: 09-09-2021 End: 09-09-2021 ambulatory Kasia Susana Other [email or web address] Other Start: 09-09-2021 Office outpatient ne w 20 minutes Kasia Susana [facility] Start: 12-28-2020 End: 12-29-2020 ambulatory ZACHARY VERA Facility:[facility] Start: 05-10-2020 End: 05-11-[address] RESTREPO LISTED REQUEST Facility:[facility] Start: 04-11-2020 End: 04-12-2020 ambulatory ZACHARY VERA Facility:[facility] Procedures Date Procedure Procedure Detail Performing Clinician Start: 08-27-2024 End: 08-27-2024 CRYOTHERAPY SKIN LESION Sierra Ortiz MD Work Phone: Start: 07-16-2024 CRYOTHERAPY SKIN LESION Sierra Ortiz MD Work Phone: Start: 06-11-2024 ALL CBC WITH AUTO DIFF Gaetano L Neyda MEDIA PROFESSIONAL Work Phone: Start: 12-24-2023 ALL CBC WITH AUTO DIFF Gaetano L Neyda MEDIA PROFESSIONAL Work Phone: Start: 12-17-2023 Screening mammograph y of bilateral breasts DO Apolinar Vasquez Work Phone: Start: 01-30-2023 X-ray of right foot DO Apolinar Vasquez Work Phone: Start: 11-13-2022 Screening mammograph y of bilateral breasts DO Apolinar Vasquez Work Phone: Start: 11-10-2021 Screening mammograph y of bilateral breasts DO Apolinar Vasquez Work Phone: Plan of Treatment Date Care Activity Detail Author Start: 08-26-2025 End: 08-26-2025 Patient encounter procedure 08/26/2025 11:15 AM EDT Office Visit [facility] [address] [place] [address] Sierra Ortiz MD [address] [place] [address] [facility] Start: 12-29-2024 Medicare Annual Wellness (AWV) Medicare Annual Wellness (AWV) [facility] Start: 12-17-2024 End: 12-17-2024 Patient encounter procedure 12/17/2024 11:15 AM EDT Office Visit [facility] [address] [place] [id number] Apolinar Vasquez DO [address] [place] [address] [facility] Start: 08-27-2024 End: 08-27-2024 Patient encounter procedure [facility] Comment on above: Arrived Start: 07-16-2024 End: 07-16-2024 Patient encounter procedure 07/16/2024 1:50 PM EDT Office Visit [facility] [address] [place] [address] Sierra Ortiz MD [address] [place] [address] Skin lesion of face [facility] Comment on above: Skin lesion of face Start: 07-02-2024 End: 12-29-2024 CBC panel - Blood by Automated count CBC Lab Routine Iron deficiency anemia, unspecified iron deficiency anemia type Medication management Expected: 07/02/2024, Expires: 12/29/2024 [facility] Comment on above: Expected: 07/02/2024 , Expires: 12/29/2024 Start: 07-02-2024 End: 12-29-2024 Comprehensive metabolic 2000 panel - Serum or Plasma Comprehensive metabolic panel Lab Routine Essential hypertension (CMS/HCC) Expected: 07/02/2024, Expires: 12/29/2024 [facility] Comment on above: Expected: 07/02/2024 , Expires: 12/29/2024 Start: 07-02-2024 End: 12-29-2024 Lipid 1996 panel - Serum or Plasma Lipid panel Lab Routine Hyperlipidemia LDL goal <130 (CMS/HCC) Expected: 07/02/2024, Expires: 12/29/2024 [facility] Comment on above: Expected: 07/02/2024 , Expires: 12/29/2024 Start: 07-02-2024 End: 12-29-2024 Microalbumin/Creatinine panel in random Urine Microalbumin / creatinine urine ratio Lab Routine Essential hypertension ([facility]/HCC) Expected: 07/02/2024, Expires: 12/29/2024 [facility] Work Phone: Comment on above: Expected: 07/02/2024 , Expires: 12/29/2024 Start: 06-29-2024 End: 06-29-2024 Patient encounter procedure 06/29/2024 11:15 AM EDT Office Visit [facility] [address] [place] [address] Apolinar Vasquez, DO [address] [place] [address] [facility] Start: 06-16-2024 End: 06-16-2024 Patient encounter procedure 06/16/2024 11:00 AM EDT Office Visit [facility] [address] [place] [address] Apolinar Vasquez, DO [address] [place] [address] [facility] Start: 12-30-2023 End: 12-30-2023 Patient encounter procedure 12/30/2023 11:15 AM EDT Office Visit [facility] [address] [place] [phone] Apolinar Vasquez, DO [address] [place] [address] [facility] Start: 11-03-2023 Influenza vaccination Influenza Vacc ine (#1) [facility] Start: 1945 Medicare Annual Wellness (AWV) Medicare Annual Wellness (AWV) [facility] Immunizations Immunization Date Immunization Notes Care Provider Fa [facility] 12-30-2023 Seasonal trivalent influenza vaccine, adjuvanted, preservative free Gaetano Faye MEDIA PROFESSIONAL Work Phone: [facility] 11-20-2022 Influenza, Seasonal, Quadrivalent, Adjuvanted Gaetano Faye MEDIA PROFESSIONAL Work Phone: [facility] 11-20-2022 influenza virus vacc ine, unspecified formulation Gaetano Faye MEDIA PROFESSIONAL Work Phone: [facility] 11-24-2021 Influenza, High-dose Seasonal, Quadrivalent, Preservative Free Gaetano Faye MEDIA PROFESSIONAL Work Phone: [facility] 11-10-2021 SARS-COV-2 (COVID-19 ) vaccine, mRNA, spike protein, LNP, bivalent, PF Gaetano Faye MEDIA PROFESSIONAL Work Phone: [facility] 12-05-2020 Influenza, High-dose Seasonal, Quadrivalent, Preservative Free Gaetano Faye MEDIA PROFESSIONAL Work Phone: [facility] 12-17-2019 influenza, injectabl e, quadrivalent, preservative free Apolinar Patrick DO Work Phone: [facility] 12-07-2019 Influenza, Seasonal, Quadrivalent, Adjuvanted Apolinar Patrick DO Work Phone: [facility] 01-08-2019 influenza, high dose seasonal, preservative-free Apolinar Patrick DO Work Phone: [facility] 01-13-2018 Seasonal trivalent influenza vaccine, adjuvanted, preservative free Apolinar Patrick DO Work Phone: [facility] 01-02-2018 Seasonal trivalent influenza vaccine, adjuvanted, preservative free Apolinar Patrick DO Work Phone: [facility] 09-10-2017 tetanus and diphther ia toxoids, adsorbed, preservative free, for adult use (5 Lf of tetanus toxoid and 2 Lf of diphtheria toxoid) Gaetano Faye MEDIA PROFESSIONAL Work Phone: [facility] 02-05-2017 pneumococcal conjuga te vaccine, 13 valent Gaetnao Faye MEDIA PROFESSIONAL Work Phone: [facility] 01-07-2017 Seasonal trivalent influenza vaccine, adjuvanted, preservative free Apolinar Patrick DO Work Phone: [facility] 01-03-2017 influenza, injectabl e, quadrivalent, preservative free Apolinar Patrick DO Work Phone: [facility] 02-10-2016 pneumococcal polysaccharide vaccine, 23 valent Gaetano Faye MEDIA PROFESSIONAL Work Phone: [facility] 01-17-2015 influenza, seasonal, injectable, preservative free Apolinar Patrick DO Work Phone: [facility] 01-10-2015 influenza, injectabl e, quadrivalent, contains preservative Apolinar Patrick DO Work Phone: [facility] 01-25-2014 seasonal influenza, intradermal, preservative free Apolinar Vasquez DO Work Phone: [facility] 01-21-2014 influenza, injectabl e, quadrivalent, contains preservative Apolinar Vasquez DO Work Phone: [facility] 02-06-2013 influenza, seasonal, injectable Apolinar Vasquez DO Work Phone: [facility] Healthcare Payers Date Payer Category Payer Private Health Insurance [employer] Ms mber [id number] 2022 Unknown [id number] 2009 Medicare [id number] 2009 [place] [address] [id number] 2009 Medicare [id number] 1959 Self-pay 1945 Unknown [id number] 1944 Unknown [id number] 1944 Unknown [id number] 1944 Unknown [id number] Unknown [id number] Unknown [id number] Unknown [id number] Unknown [id number] Unknown [id number] Social History Date Type Detail Facility Unknown if ever smoked [email or web address] Other Start: 05-23-2023 End: 12-30-2023 Sex Assigned At [facility] Start: 1945 Sex Assigned At Female [facility] Start: 08-11-2023 End: 07-16-2024 Tobacco smoking status NHIS Ex-smoker (finding) [facility] Start: 03-04-1999 End: 03-04-2014 History of tobacco use Current smoker [facility] Start: 03-04-1999 End: 03-04-2014 History of tobacco use Cigarette Smoker [facility] Start: 10-15-2022 End: 12-30-2023 Cigarettes smoked current (pack per day) - Reported 0.5 [facility] Start: 10-15-2022 End: 07-16-2024 Tobacco use and exposure Smokeless tobacco non-user [facility] Start: 05-23-2023 End: 08-27-2024 Alcoholic beverage intake Lifetime non-drinker (finding) [facility] How often to you have a drink containing alcohol? Never [facility] How many standard drinks containing alcohol do you have on a typical day? Patient does not drink [facility] Start: 10-11-2022 Alcohol Comment Caffeine: 1-2 cups/day 8 oz of pop daily, unsweetened tea [facility] Start: 1945 Sex assigned at Not on file [facility] NEGATED: Highlighted rowStart: GABBIF History of tobacco use Passive smoker [facility] Clinical Notes 05-24-2016 to 08-27-2024 Sierra Ortiz MD - 08/27/2024 11:20 AM Simon Ortiz MD - 07/16/2024 1:50 PM Al Faye NP - 12/30/2023 11:15 AM EDT Note Date & Type Note Facility 08-27-2024 History of Presen t illness Narrative Skin Check Location: Patient requests a full body skin examination Dermatologic history: history of Actinic Keratosis Last visit: 6 weeks ago Established patient Follow up Diagnosis: Actinic Keratosis Location: Left Zygomatic Area Last visit: 6 weeks ago Symptoms: red, some scale left Status: improved Procedure performed: Cryotherapy Date of procedure: 07/16/24 All pertinent medical history, medications, and allergies were reviewed. General Exam: alert, oriented to person, place, and time, normal affect, well appearing Unaccompanied Scalp, Examined , exam limited by hair Right leg Examined Head, Face Examined Left leg Examined Neck Examined Right foot Examined Chest Examined Left foot Examined Back Examined Buttocks Examined Abdomen Examined Digits,nails: Examined Right arm Examined Patient wearing nail kosovan, Denies dark streaks under finger nails, Denies dark streaks on toenails Left arm Examined Lymphatics: Not examined Hands Examined Skin Exam 1. SEBORRHEIC KERATOSIS Generalized Stuck on verrucous, post-brown papules and plaques. Patient was counseled regarding these benign growths. Removal is normally not necessary, but they may be removed if they are symptomatic or for cosmetic reasons. 2. LENTIGINES Generalized Scattered post macules in sun-exposed areas. The patient was informed that lentigines are benign pigmented lesions that occur on sun-exposed and sun-damaged skin. No treatment is necessary. Recommended regular use of broad spectrum sunscreen SPF 30 or higher 3. ACTINIC KERATOSIS Left Zygomatic Area Erythematous scaly papules Patient was counseled regarding these sun-induced growths that can develop into squamous cell carcinoma if left untreated. Discussed treatment with cryotherapy. It was emphasized that any treated lesions that fail to resolve should be re-evaluated. Cryotherapy performed today; see procedure note Diagnosis: Actinic keratosis Indication: Precancerous Location: see skin exam Consent: Verbal consent was obtained and risks were discussed, including, but not limited to risks of scarring, darker or doorshaker pigmentary changes, recurrence, incomplete removal and infection. Method: Liquid nitrogen was used to treat the lesion(s) with two 5-10 second freeze-thaw cycles. Number of lesions treated: 1 Post-procedure instructions: Instructions were given orally and in writing. The office will be contacted if the lesion fails to resolve despite treatment, or if a side effect develops such as abnormal crusting, scabbing, redness or tenderness Cryotherapy, skin lesion - Left Zygomatic Area 4. SEBORRHEIC KERATOSIS, INFLAMED Right Judaism [place] and brown stuck on verrucous scaly papule with surrounding erythema The patient was informed that symptomatic seborrheic keratoses are benign growths that become inflamed, itchy, tender, traumatized, caught on clothing, or bleed. Symptomatic lesions can be treated with cryotherapy or curretage. Thicker lesions treated with cryotherapy may require more than one treatment. The patient was instructed to notify the office if abnormal redness or tenderness develops at the treatment site. Cryotherapy today, see procedure note. Diagnosis: Inflamed seborrheic keratosis Indication: Inflamed Consent: Verbal consent was obtained and risks were discussed, including, but not limited to risks of scarring, darker or doorshaker pigmentary changes, recurrence, incomplete removal and infection. Method: Liquid nitrogen was used to treat the lesion(s) with two 5-10 second freeze-thaw cycles Number of lesions treated: 1 Post-procedure instructions: Instructions were given orally and in writing. The office will be contacted if the lesion fails to resolve despite treatment, or if a side effect develops such as abnormal crusting, scabbing, redness or tenderness Cryotherapy, skin lesion - Right Judaism Next Visit: 1 year documented in this encounter [facility] 07-16-2024 History of Presen t illness Narrative Images from the original note were not included. Lesions: Location: Left cheek Duration: Over a year Quality: Itchy Modifying factors: Recurrent. Able to pick the crusting off and it comes back Associated symptoms: Gets scabby at times Treatments: Lotion, bag balm New patient, referred by Apolinar Vasquez, All pertinent medical history, medications, and allergies were reviewed. General Exam: alert, oriented to person, place, and time, normal affect, well appearing A focused exam completed based on patient reported problems, see below: Skin Exam 1. SEBORRHEIC KERATOSIS Right Judaism Stuck on verrucous, post-brown papules and plaques. Patient was counseled regarding these benign growths. Removal is normally not necessary, but they may be removed if they are symptomatic or for cosmetic reasons. 2. ACTINIC KERATOSIS Left Zygomatic Area Erythematous scaly macule Patient was counseled regarding these sun-induced growths that can develop into squamous cell carcinoma if left untreated. Discussed treatment with cryotherapy. It was emphasized that any treated lesions that fail to resolve should be re-evaluated. Cryotherapy performed today; see procedure note Diagnosis: Actinic keratosis Indication: Precancerous Location: see skin exam Consent: Verbal consent was obtained and risks were discussed, including, but not limited to risks of scarring, darker or doorshaker pigmentary changes, recurrence, incomplete removal and infection. Method: Liquid nitrogen was used to treat the lesion(s) with two 5-10 second freeze-thaw cycles. Eyes were shielded using cotton pad during procedure Number of lesions treated: 1 Post-procedure instructions: Instructions were given orally and in writing. The office will be contacted if the lesion fails to resolve despite treatment, or if a side effect develops such as abnormal crusting, scabbing, redness or tenderness Cryotherapy, skin lesion - Left Zygomatic Area Next Visit: 08/27/24 follow up and skin check documented in this encounter [facility] 12-30-2023 History of Presen t illness Narrative [...] was completed with the patient today by Gaetnao Faye NP. Demographics updated. The past medical [...] immunizations need to be repeated. Essential hypertension ([facility]) - Microalbumin / creatinine urine ratio; Future - Comprehensive metabolic panel; Future ACP (advance care planning) -Full code Hyperlipidemia LDL goal <130 (CMS/[facility]) - Lipid panel; Future Iron deficiency anemia, [...] living will and a healthcare, power of employee benefits attorney. She wishes to be a full [...] six months or sooner if needed. Dr. Vasquez was present in office suite today and is supervising patient care and available for consult. I'm following his plan of care for the above problems. Previous notes and plan were reviewed and followed. Gaetano Faye, MSN, DIGITAL ASSISTANT-GIZZARD PEELER documented in this encounter [facility] 01-30-2023 Evaluation note Encounter Date Diagnosis Assessment [...] days Jan, Other Contusion material was printed [email or web address] Other 07-08-2023 Evaluation note* Encounter Date Diagnosis Assessment Notes Treatment Notes Treatment Clinical Notes Sep, Poison yash (ICD-10 - L23.7) Poison yash allergy home care material was printed Drink plenty fluids, get plenty of rest. Continue home medications as prescribed. Take the prednisone as prescribed until gone. Take Benadryl as needed for itching. Follow-up with your family physician if no improvement in 2 to 3 days [email or web address] Other 07-09-2022 Evaluation note* Encounter Date Diagnosis Assessment Notes Treatment Notes Treatment Clinical Notes Sep, Poison yash dermatitis (ICD-10 - L23.7) Contact dermatitis home care material was printed Drink plenty fluids, get plenty of rest. Take the prednisone as prescribed until gone. You may take Benadryl as needed for itching and redness. You may use calamine lotion to the rash as well. Follow-up with your family physician if no improvement in 2 to 3 days. [email or web address] Other 03-23-2017 History general Narrative - Reported* Type Description Date Medical History hyperlipidemia Medical History fx left hip Surgical History C section Surgical History cataracts Surgical History 3 pins in left hip 05/24/2016 Hospitalization History See above [email or web address] Other 03-23-2017 History general Narrative - Reported* Type Description Date Medical History hyperlipidemia Medical History fx left hip Surgical History C section x3 Surgical History cataracts Surgical History 3 pins in left hip 05/24/2016 Hospitalization History See above [email or web address] Other Evaluation noteNo assessment information available [facility] Work Phone: Evaluation note* Diagnosis Encounter for subsequent annual wellness visit (AWV) in Medicare patient- Primary Essential hypertension ([facility]/HCC) Unspecified essential hypertension ACP (advance care planning) Other specified counseling Hyperlipidemia LDL goal <130 ([facility]/HCC) Other and unspecified hyperlipidemia Iron deficiency anemia, unspecified iron deficiency anemia type LPRD (laryngopharyngeal reflux disease) Acute laryngitis, without mention of obstruction Need for immunization against influenza Need for prophylactic vaccination and inoculation against influenza Medication management documented in this encounter [facility] HealthcareEvaluation note* Diagnosis Essential hypertension (CMS/HCC)- Primary Unspecified essential hypertension Hyperlipidemia LDL goal <130 ([facility]/HCC) Other and unspecified hyperlipidemia Osteoporosis without current pathological fracture, unspecified osteoporosis type ([facility]) Vitamin D deficiency Gastroesophageal reflux disease without esophagitis Esophageal reflux Stage 3a chronic kidney disease (HCC) ([facility]) Skin lesion of face Unspecified disorder of skin and subcutaneous tissue documented in this encounter [facility] HealthcareEvaluation note* Diagnosis Seborrheic keratosis- Primary Actinic keratosis documented in this encounter [facility] HealthcareEvaluation note* Diagnosis Seborrheic keratosis- Primary Lentigines Actinic keratosis Seborrheic keratosis, inflamed documented in this encounter [facility] HealthcareReason for visit Narrative* Consultation (Routine) - Closed Specialty Diagnoses / Procedures Referred By Yancy alvarez Referred To Contact Dermatology Diagnoses Skin lesion of face Procedures NE OFFICE/OUTPATIENT [facility] 60 MINUTES Apolinar Vasquez DO [address] [place] [address] Phone: tel: fax: Sierra Ortiz MD [address] [place] [address] Phone: tel: fax: Referral ID Status Reason Start Date Expiration Date V isits Requested Visits Authorized [id number] Closed Consult and Treat 06/16/2024 12/13/2024 1 1 [facility] Healthcare Summary Purpose Family History No Family [...] Comments 11/20/2022 12:05 PM 12/30/2023 12:15 PM Date Activated Date Inactivated Comments 12/30/2023 12:15 PM Date Activated Date Inactivated Comments 11/20/2022 12:05 PM 12/30/2023 12:15 PM Chief Complaint and Reason for Visit Chief Complaint Screening Chief Complaint Poison yash on face Additional Source Comments INFORMATION SOURCE (unrecogn ized section and content) DATE CREATED AUTHOR 01/17/2021 [facility] DATE CREATED AUTHOR AUTHOR'S ORGANIZ ATION 12/23/2023 [facility] DATE CREATED AUTHOR AUTHOR'S ORGANIZ ATION 08/28/2024 [facility] EPIC REASON FOR VISIT (unrecogniz ed section and content) Reason Comments 6 mos ov MWV Patient presents for 6 mos MWV and to review labs Reason Comments 6 month follow up Pt presents 6 month follow up and review labs. Pt brought in BP reading. Skin Check Care Teams (unrecognized sec tion and content) Team Status: Inactive Member Role Status Dates Apolinar Vasquez DO Primary Care Provider Active Referral Self Attending Provider Active Team Status: Active Member Role Status Dates Apolinar Vasquez DO Primary Care Provider Active Team Status: Inactive Member Role Status Dates Apolinar Vasquez DO Primary Care Provider Active Gaetano Faye RN MSN ANP-C Attending Provider Act francisca Team Status: Inactive Member Role Status Dates Apolinar Vasquez DO Primary Care Provider Active Kasia Meza NP-C Attending Provider Active Team Status: Inactive Member Role Status Dates Apolinar Vasquez DO Primary Care Provider Active Start: August 11, 2023 End: August 11, 2023 Kalli Lawrence APRN Attending Provider Active S tart: August 11, 2023 End: August 11, 2023 Team Status: Inactive Member Role Status Dates Apolinar Vasquez DO Primary Care Provider Active Start: December 17, 2023 End: December 17, 2023 Referral Self Attending Provider Active Start: O ctober 2023 End: December 17, 2023 [employer] Relationship Specialty Start Date End Date Apolinar Vasquez DO [address] [place] [address] PCP - General Internal Medicine 08/01/22 Apolinar Vasquez DO [address] [place] [address] PCP - ACO Reach 07/03/23 [employer] Relationship Specialty Start Date End Date Apolinar Vasquez DO [address] [place] [address] PCP - General Internal Medicine 08/01/22 Apolinar Vasquez DO [address] [place] [address] PCP - ACO Reach 07/03/23 [employer] Relationship Specialty Start Date End Date Apolinar Vasquez DO [address] [place] [address] PCP - General Internal Medicine 08/01/22 Apolinar Vasquez DO [address] [place] [address] PCP - ACO Reach 07/03/23 [employer] Relationship Specialty Start Date End Date Apolinar Vasquez DO [address] [place] [address] PCP - General Internal Medicine 08/01/22 Apolinar Vasquez DO [address] [place] [address] PCP - ACO Reach 07/03/23 [employer] Relationship Specialty Start Date End Date Apolinar Vasquez DO [address] [place] [address] PCP - General Internal Medicine 08/01/22 Apolinar Vasquez DO [address] [place] [address] PCP - ACO Reach 07/03/23 [employer] Relationship Specialty Start Date End Date Apolinar Vasquez DO [address] [place] [address] PCP - General Internal Medicine 08/01/22 Apolinar Vasquez DO [address] [place] [address] PCP - ACO Reach 07/03/23 [employer] Relationship Specialty Start Date End Date Apolinar Vasquez DO [address] [place] [address] PCP - General Internal Medicine 08/01/22 Apolinar Vasquez DO [address] [place] [address] PCP - ACO Reach 07/03/23 [employer] Relationship Specialty Start Date End Date Apolinar Vasquez DO [address] [place] [address] PCP - General Internal Medicine 08/01/22 Apolinar Vasquez DO [address] [place] [address] PCP - ACO Reach 07/03/23 Goals (unrecognized [...] BE BASED ON THE PRIMARY CLINICAL RECORDS. [employer] provides no warranty or guarantee of the accuracy or completeness of information in this document.
[2024-12-10 08:33] LABS: Hematocrit 36.8 % (36.0-48.0); Hemoglobin 12.2 g/dL (12.0-16.0); Immature Granulocytes Abs Auto 0.01 10^3/uL (0.00-0.03); Immature Granulocytes Pct Auto 0.2 % (0.0-0.5); Lymphocytes Absolute Auto 1.2 10^3/uL (1.2-3.8); Mean Corpuscular HGB Conc 33.2 g/dL (29.9-35.2); Mean Corpuscular Hemoglobin 28.9 pg (26.7-34.0); Mean Corpuscular Volume 87.2 fL (81.0-99.0); Platelet Count 214 10^3/uL (150-450); Red Blood Count 4.22 10^6/uL (4.20-5.40); White Blood Count 4.9 10^3/uL (4.0-11.0)
[2024-12-10 08:46] LABS: Alanine Aminotransferase 19 U/L (14-59); Albumin Globulin Ratio 1.1; Albumin Level 4.1 g/dL (3.4-5.0); Alkaline Phosphatase 64 U/L (46-116); Anion Gap 13.7; Aspartate Amino Transferase 25 U/L (15-37); Blood Urea Nitrogen 15.0 mg/dL (7.0-18.0); Calcium 9.1 mg/dL (8.5-10.1); Carbon Dioxide 27.4 mmol/L (21.0-32.0); Chloride 99 mmol/L (98-107); Cholesterol 177 mg/dL (<=200); Estimated GFR (African America >60 (>=60 mL/min/1.73m^2); Estimated GFR (Non-African Ame >60 (>=60 mL/min/1.73m^2); Globulin 3.8 g/dL; Glucose 99 mg/dL (74-106); HDL Cholesterol 75 mg/dL (40-60); Potassium 4.1 mmol/L (3.5-5.1); Sodium 136 mmol/L (136-145); Thyroid Stimulating Hormone 2.637 uIU/mL (0.358-3.740); Total Protein 7.9 g/dL (6.4-8.2); Triglycerides 83 mg/dL (<=150); VLDL CHOLESTEROL 16.6 mg/dL
== END 2024-12-10 07:47 | disposition home or self-care (01) ==
PROVIDERS: PCP Nurse Practitioner Adult Health; Visit Provider Internal Medicine
DX: I12.9 Hypertensive chronic kidney disease with stage 1 through stage 4 chronic kidney disease, or unspecified chronic kidney disease (principal); N18.31 Chronic kidney disease, stage 3a; K21.9 Gastro-esophageal reflux disease without esophagitis; E78.5 Hyperlipidemia, unspecified
CPT/HCPCS: 36415; 80053; 80061; 84443; 85025

== ENCOUNTER 2024-12-11 15:21 | Emergency (ER) | payer MEDICARE, SELFPAY ==
[2024-12-11 15:30] VITALS: BP 155/92; PULSE 82; TEMP 37; O2SAT 98; BMI 21.9
--- OUTSIDE RECORDS SUMMARY | 2024-12-11 15:34 | XMS_ITS | CCD ---
Author Organization [facility] Care Team Providers Care Deputy Sheriff Building Guard Name Role Phone ZACHARY VERA Consulting Unavailable REQUEST, NONE LISTED Attending Unavaila ble REQUEST, NONE LISTED Admitting Unavaila ble REQUEST, NONE LISTED Attending Unavaila ble REQUEST, NONE LISTED Consulting Unavaila ble REQUEST, NONE LISTED Admitting Unavaila ble ZACHARY VERA Attending Unavailable ZACHARY VERA Consulting Unavailable ZACHARY VERA Admitting Unavailable Kasia Meza Unavailable DO Apolinar Vasquez Primary Care Provider [phone] Self, Referral Attending Provider Unavailable DO Apolinar Vasquez Primary Care Provider BLANCA Faye Attending Provider [phone] DO Apolinar Vasquez Primary Care Provider BLANCA Faye Attending Provider [phone] SENTHIL Meza Attending Provider [phone] DO Apolinar Vasquez Primary Care Provider Self, Referral Attending Provider Unavailable Kasia Meza Admitting Unavailable Kasia Meza Attending Unavailable Apolinar Vasquez Primary Care Unavailable Self, Referral Admitting Unavailable Self, Referral Attending Unavailable Apolinar Vasquez Primary Care Unavailable Apolinar Vasquez DO Primary Care Provider Apolinar Vasquez DO Unavailable APOLINAR VASQUEZ Attending Unavailable SIERRA ORTIZ Attending Unavailable APOLINAR VASQUEZ Referring Unavailable GAETANO FAYE Attending Unavailable SIERRA ORTIZ Attending Unavailable Tamir Landon MD Primary Care Provider Allergies Allergy Classification Reported Allergen(s) Allergy Type Date of Onset Reaction(s) Facility (13 sources) Honey bee venom Propensity to adverse reactions 3 Swelling [facility] Work Phone: Medications Current Medications Medication Drug Class(es) Dates Sig (Normalized) Sig (Original) acetaminophen 325 mg oral capsule (16 sources) take 1 capsule by mouth every six hours as needed acetaminophen (Tylenol) 325 MG capsule Take 325 mg by mouth every 6 (six) hours if needed Active tylenol 1 tab Or al Active aspirin 81 mg delayed release oral tablet (18 sources) Platelet Aggregation Inhibitor, Nonsteroidal Anti-inflammatory Drug Start: 08-11-2023 Aspirin (Adult Lo w Dose Aspirin) 81 mg tablet,delayed release (DR/EC) Active 81 MG PO Daily August 11, 2023 12:00am take 1 tablet by luis th every twenty-four hours Aspirin 81 MG 1 tablet Orally Once a day Active atorvastatin 10 mg oral tablet (18 sources) HMG-CoA Reductase Inhibitor Start: 07-24-2024 atorvastatin [...] 1 tablet Orally Once a day Active B52-Vhgsay 1 MG (3 sources) Q10-Gibksu 1 MG Orally Not-Taking calcium carbonate 1250 [...] 2023 12:00am Calcium Citrate / Vitamin D (13 sources) take 650 mg by mouth once [...] Temovate Active Cranberry-Vitamin C-Probiotic (AZO CRANBERRY PO) (9 sources) Cranberry-Vitami n C-Probiotic (AZO CRANBERRY PO) [...] a meal lisinopril 5 mg oral tablet (15 sources) Angiotensin Converting Enzyme Inhibitor Start: 2024 take 1 tablet by mouth once daily lisinopril 5 MG tablet Indications: Borderline high blood pressure TAKE 1 TABLET BY MOUTH EVERY DAY 90 tablet 3 11/18/2024 Active Start: 09-24-2023 take 1 tablet by luis th once daily lisinopril 5 MG tablet Indications: [...] pantoprazole 40 mg delayed release oral tablet (7 sources) Proton Pump Inhibitor Start: 12-01-2024 take 1 tablet by mouth in the morning pantoprazole (ProtoNix) 40 MG EC tablet Indications: Gastroesophageal Reflux Disease Take 1 tablet (40 mg) by mouth in the morning. Do not crush, chew, or split. 90 tablet 1 12/01/2024 Active Start: 06-16-2024 take 1 tablet by luis th in the morning pantoprazole (ProtoNix) 40 MG [...] Sep, Not-Taking Probiotic Product (PROBIOTIC DAILY PO) (9 sources) Probiotic Produc t (PROBIOTIC DAILY PO) [...] 09-09-2021 Resolved: 09-09-2021 Episodic Chronic kidney disease (11 sources) Chronic kidney disease stage 3A ; Translations: [Stage 3a chronic kidney disease (HCC) ([facility]/HCC)] Onset: 06-16-2024 06-16-2024 Chronic Disorders of lipid metabolism (17 sources) Hyperlipidemia; Translations: [Hyperlipidemia, unspecified] Onset: 07-05-2014 10-08-2022 Chronic Esophageal disorders (17 sources) Laryngopharyngeal reflux; Translations: [Gastro-esophageal reflux disease without esophagitis] Onset: 10-26-2022 10-26-2022 Chronic Essential hypertension (16 sources) Essential hypertension; Translations: [Essential (primary) hypertension] [...] influenza immunization] Onset: 12-28-2020 Episodic Nutritional deficiencies (15 sources) Vitamin D deficiency; Translations: [Vitamin D deficiency, unspecified] Onset: 06-07-2016 10-08-2022 Chronic Osteoporosis (15 sources) Osteoporosis; Translations: [Age-related osteoporosis without current [...] 05-23-2023 03-27-2023 Episodic Deficiency and other anemia (15 sources) Iron deficiency anemia; Translations: [Iron deficiency anemia, unspecified] Onset: 05-23-2023 05-23-2023 Episodic Genitourinary symptoms and ill-defined conditions (13 sources) Dysuria; Translations: [Dysuria] Onset: 08-01-2022 Resolved: 03-27-2023 03-27-2023 Episodic Inflammatory diseases of female pelvic organs (13 sources) Acute vaginitis; Translations: [Acute vaginitis] Onset: 08-01-2022 Resolved: 11-20-2022 11-20-2022 Episodic Menopausal disorders (13 sources) Atrophic vaginitis; Translations: [Postmenopausal atrophic vaginitis] Onset: 08-01-2022 Resolved: 11-20-2022 11-20-2022 Chronic Mood disorders (12 sources) Mood disorders Onset: 12-30-2023 12-30-2023 Other circulatory disease (13 sources) Prehypertension; Translations: [Elevated blood-pressure reading, without diagnosis of hypertension] Onset: 03-26-2023 Resolved: 12-30-2023 03-26-2023 Episodic Other screening for suspected conditions (not mental disorders or infectious disease) (14 sources) Encounter for screening mammogram for malignant neoplasm of breast; Translations: [Patient encounter status] Onset: 10-15-2022 Resolved: 03-27-2023 03-27-2023 Episodic Other upper respiratory disease (13 sources) Hoarse; Translations: [Dysphonia] Onset: 10-15-2022 Resolved: 03-27-2023 03-27-2023 Episodic Other upper respiratory disease (13 sources) Polyp of vocal cord ; 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] Onset: 10-26-2022 Resolved: 05-23-2023 05-23-2023 Episodic Results Test Name Value Interpretation Reference Range Facility ALL CBC WITH AUTO DIFFon BASOPHILS ABSOLUTE AUTO 0.1 [facility] Basophils/100 WBC (Bld) 1.2 % 0.2 - 2.0 % [facility] Eosinophils/100 WBC (Bld) 2 % 0.9 - 7.0 % [facility] Erythrocyte distribution width (RBC) [Ratio] 14.3 % 11.0 - 15.0 % [facility] Hematocrit (Bld) [Volume fraction] 36.8 % 36.0 - 48.0 % [facility] e Hemoglobin (Bld) [Mass/Vol] 12.2 g/dL 12.0 - 16.0 g/dL [facility] IMMATURE GRANULOCYTES ABS AUTO 0.01 [facility] Immature granulocytes/100 WBC (Bld) 0.2 % 0.0 - 0.5 % [facility] LYMPHOCYTES ABSOLUTE AUTO 1.2 [facility] Lymphocytes/100 WBC (Bld) 24.2 % 20.5 - 60.0 % [facility] MCH (RBC) [Entitic mass] 28.9 pg 26.7 - 34.0 pg [facility] MCHC (RBC) [Mass/Vol] 33.2 g/dL 29.9 - 35.2 g/dL [facility] MCV (RBC) [Entitic vol] 87.2 fL 81.0 - 99.0 fL [facility] Healthcare MONOCYTES ABSOLUTE AUTO 0.5 [facility] Healthcare Monocytes/100 WBC (Bld) 9.6 % 1.7 - 12.0 % [facility] NEUTROPHILS ABSOLUTE AUTO 3.1 [facility] Neutrophils/100 WBC (Bld) 62.8 % 43.0 - 75.0 % [facility] Platelet mean volume (Bld) [Entitic vol] 9.9 fL 9.5 - 13.5 fL [facility] EO # 0.1 [facility] PLT 214 [facility] RBC 4.22 [facility] WBC 4.9 [facility] No Panel Informationon 08-27 [facility] No Panel Informationon 07-16 [facility] ALL CBC WITH AUTO DIFFon BASOPHILS ABSOLUTE AUTO 0.1 [facility] Basophils/100 WBC (Bld) 1.7 % 0.2 - 2.0 % [facility] Eosinophils/100 WBC (Bld) 6.1 % 0.9 - 7.0 % [facility] Erythrocyte distribution width (RBC) [Ratio] 14.3 % 11.0 - 15.0 % [facility] Hematocrit (Bld) [Volume fraction] 35.6 % Low 36.0 - 48.0 % [facility] Hemoglobin (Bld) [Mass/Vol] 11.5 g/dL Low 12.0 - 16.0 g/dL [facility] IMMATURE GRANULOCYTES ABS AUTO 0.01 [facility] Immature granulocytes/100 WBC (Bld) 0.2 % 0.0 - 0.5 % [facility] Interpretation and review of laboratory results Abnormal [facility] LYMPHOCYTES ABSOLUTE AUTO 1.5 [facility] Lymphocytes/100 WBC (Bld) 26 % 20.5 - 60.0 % [facility] MCH (RBC) [Entitic mass] 28.5 pg 26.7 - 34.0 pg [facility] MCHC (RBC) [Mass/Vol] 32.3 g/dL 29.9 - 35.2 g/dL [facility] MCV (RBC) [Entitic vol] 88.3 fL 81.0 - 99.0 fL [facility] Healthcare MONOCYTES ABSOLUTE AUTO 0.5 [facility] Monocytes/100 WBC (Bld) 8.8 % 1.7 - 12.0 % [facility] Healthcare NEUTROPHILS ABSOLUTE AUTO 3.3 [facility] Neutrophils/100 WBC (Bld) 57.2 % 43.0 - 75.0 % [facility] Healthcare Platelet mean volume (Bld) [Entitic vol] 9.8 fL 9.5 - 13.5 fL [facility] EO # 0.4 [facility] PLT 203 [facility] RBC 4.03 Low [facility] WBC 5.8 [facility] ALL CBC WITH AUTO DIFFon BASOPHILS ABSOLUTE AUTO 0.1 [facility] Basophils/100 WBC (Bld) 1.4 % 0.2 [...] (Bld) 27.6 % 20.5 - 60.0 % [facility] MCH (RBC) [Entitic mass] 28.5 pg 26.7 - 34.0 pg [facility] MCHC (RBC) [Mass/Vol] 31.6 g/dL 29.9 - 35.2 g/dL [facility] MCV (RBC) [Entitic vol] 90 fL 81.0 - 99.0 fL [facility] MONOCYTES ABSOLUTE AUTO 0.5 [facility] Monocytes/100 WBC (Bld) 8.5 % 1.7 - 12.0 % [facility] NEUTROPHILS ABSOLUTE AUTO 3.3 [facility] Neutrophils/100 WBC (Bld) 60.1 % 43.0 - 75.0 % [facility] Platelet mean volume (Bld) [Entitic vol] 10.8 fL 9.5 - 13.5 fL [facility] EO # 0.1 [facility] PLT 189 [facility] RBC 4.39 [facility] WBC 5.6 [facility] MM screening mammo BI w/CADo n 12-17-2023 MM screening mammo BI w/CAD [facility] Main [address] [address] Mammography Report Signed Patient: Coral Juan MR#: [id number] : 1945 Acct:[id number] Age/Sex: 78 / F ADM Date: 12/17/23 Loc: [place] Room: Type: [facility] CL Attending Dr: Referral Self Copies to: Apolinar Vasquez DO SELF,REFERRAL Ordering Provider: SELF,REFERRAL Date of [...] Merritt Quiroz M.D.12/17/2023 2:27 PM Dictation Location: [facility] Transcribed By: MERY 12/17/23 142 Dictated By: Merritt Quiroz II, MD 12/17/23 142 Signed By: 12/17/23 142 Normal [facility] XR foot RT min 3V*on 023 XR foot RT min 3V* [facility] Main [place] [address] [place] [address] XRay Report Signed Patient: Coral Juan MR#: [id number] : 1945 Acct:[id number] Age/Sex: 77 / F ADM Date: 11/29/23 Loc: XDUCLY Room: Type: [facility] Attending Dr: Kasia NDIAYE Copies to: SENTHIL [...] Coral Deleon M.D.01/30/2023 3:18 PM Dictation Location: [place] [address] Transcribed By: [facility] 01/30/23 1518 Dictated By: Coral Deleon MD 01/30/23 151 Signed By: 01/30/231517 Normal [facility] XR foot RT min 3V* [facility] [employer] Other XR foot RT min 3V* [facility] Main [facility] [employer] Other XR foot RT min 3V* [address] [place] [address] [employer] Other XR foot RT min 3V* [place] [address] [facility] Other XR foot RT min 3V* XRay Report [facility] Other XR foot RT min 3V* Signed [facility] Other XR foot RT min 3V* Patient: Coral Juan MR#: [id number] [facility] [employer] Other XR foot RT min 3V* : 1945 Acct:[id number] [facility] Other XR foot RT min 3V* Age/Sex: 77 / F ADM Date: 01/30/23 [facility] Other XR foot RT min 3V* Loc: XDUCLY Room: Type: [facility] Other XR foot RT min 3V* Attending Dr: Kasia NDIAYE [facility] Other XR foot RT min 3V* Copies to: Kasia Meza NPJin [facility] Other XR foot RT min 3V* Ordering Provider: SENTHIL Mccrary [facility] Other XR foot RT min 3V* Date of Service: 01/30/23 [facility] Other XR foot RT min 3V* XR/XR foot RT min 3V*: Right foot pain [facility] Other XR foot RT min 3V* RIGHT FOOT - 3 views [facility] Other XR foot RT min 3V* CLINICAL DATA: Patient dropped a board onto her foot 3 days ago and has pain and bruising at the [facility] Other XR foot RT min 3V* distal second through fourth metatarsals [facility] Other XR foot RT min 3V* COMPARISON: None [facility] Other XR foot RT min 3V* AP, lateral and oblique views were obtained. Minor irregularity is seen at the articular aspect of [facility] Other XR foot RT min 3V* the head of the second metatarsal. This could be degenerative or AVN (Freiberg's infraction). [facility] Other XR foot RT min 3V* There is also minor chronic appearing deformity at the head of the proximal phalanx of the fifth [facility] Other XR foot RT min 3V* toe. There is no definite acute fracture or dislocation. A small plantar calcaneal spur is seen. [facility] Other XR foot RT min 3V* There are no significant soft tissue abnormalities. [facility] Other XR foot RT min 3V* XR/XR foot RT min 3V* [facility] Other XR foot RT min 3V* IMPRESSION: [facility] Other XR foot RT min 3V* NO ACUTE BONY INJURY. [facility] Other XR foot RT min 3V* Impression dictated by: Coral Deleon M.D.01/30/2023 3:18 PM [facility] Other XR foot RT min 3V* Dictation Location: [place] [address] [facility] Other XR foot RT min 3V* Transcribed By: MERY 01/30/23 [facility] Other XR foot RT min 3V* Dictated By: Coral Deleon MD 01/30/23 [facility] Other XR foot RT min 3V* Signed By: [facility] Other XR foot RT min 3V* 01/30/[address] [place] [address] [employer] Other Vital Signs Date Time Vital Sign Value Performing Clinician Facility 06-16-2024 11:22-0400 Body height 157.5 cm Apolinar Vasquez DO Work Phone: [facility] [employer] 06-16-2024 11:22-0400 Body mass index (BMI) [Ratio] 21.95 kg/m2 Apolinar Vasquez DO Work Phone: [facility] 06-16-2024 11:22-0400 Body weight 54.43 kg Apolinar Vasquez DO Work Phone: [facility] 06-16-2024 11:22-0400 Diastolic blood pressure 82 mm[Hg] Apolinar Vasquez DO Work Phone: [facility] 06-16-2024 11:22-0400 Heart rate 80 /min Apolinar Vasquez DO Work Phone: [facility] 06-16-2024 11:22-0400 SaO2% (BldA) [Mass fraction] 99 % Apolinar Vasquez DO Work Phone: [facility] 06-16-2024 11:22-0400 Systolic blood pressure 136 mm[Hg] Apolinar Vasquez DO Work Phone: [facility] 12-30-2023 11:51-0400 Body height 158.8 cm Gaetano Faye HOME PERFORMANCE LABORER Work Phone: [facility] 12-30-2023 11:51-0400 Body mass index (BMI) [Ratio] 21.06 kg/m2 Gaetano Faye HOME PERFORMANCE LABORER Work Phone: [facility] 12-30-2023 11:51-0400 Body weight 53.07 kg Gaetano Faye HOME PERFORMANCE LABORER Work Phone: [facility] 12-30-2023 11:51-0400 Diastolic blood pressure 64 mm[Hg] Gaetano Faye HOME PERFORMANCE LABORER Work Phone: [facility] 12-30-2023 11:51-0400 Heart rate 71 /min Gaetano Faye HOME PERFORMANCE LABORER Work Phone: [facility] 12-30-2023 11:51-0400 SaO2% (BldA) [Mass fraction] 96 % Gaetano Faye HOME PERFORMANCE LABORER Work Phone: [facility] 12-30-2023 11:51-0400 Systolic blood pressure 140 mm[Hg] Gaetano Faye HOME PERFORMANCE LABORER Work Phone: [facility] 08-11-2023 12:34-0400 Body height 160.02 cm [facility] 08-11-2023 12:34-0400 Body mass index (BMI) [Ratio] 20.5 kg/m2 [facility] 08-11-2023 12:34-0400 Body temperature 97.5 [degF] [facility] 08-11-2023 12:34-0400 Body weight 52.67 kg [facility] 08-11-2023 12:34-0400 Diastolic blood pressure 78 mm[Hg] [facility] 08-11-2023 12:34-0400 Heart rate 62 /min [facility] 08-11-2023 12:34-0400 Respiratory rate 16 /min [facility] 08-11-2023 12:34-0400 SaO2% (BldA) [Mass fraction] 99 % [facility] 08-11-2023 12:34-0400 Systolic blood pressure 138 mm[Hg] [facility] 01-30-2023 14:45-0500 Body height 160.02 cm Kasia Butterfieldmond Other [facility] [facility] [employer] Other 01-30-2023 14:45-0500 Body mass index (BMI) [Ratio] 21.43 kg/m2 Kasia Butterfieldmond Other [facility] Other 01-30-2023 14:45-0500 Body temperature 100 [degF] Kasia Butterfieldmond Other [facility] Other 01-30-2023 14:45-0500 Body weight 54.89 kg Kasia Susana Other [facility] Other 01-30-2023 14:45-0500 Diastolic blood pressure 83 mm[Hg] Kasia Susana Other [facility] Other 01-30-2023 14:45-0500 Respiratory rate 18 /min Kasia Butterfieldmond Other [facility] Other 01-30-2023 14:45-0500 SaO2% (BldA) [Mass fraction] 95 % Kasia Susana Other [facility] Other 01-30-2023 14:45-0500 Systolic blood pressure 165 mm[Hg] Kasia Susana Other [facility] Other 09-08-2022 10:15-0400 Body height 160.02 cm Kasia Susana Other [facility] Other 09-08-2022 10:15-0400 Body mass index (BMI) [Ratio] 21.57 kg/m2 Kasia Susana Other [facility] Other 09-08-2022 10:15-0400 Body temperature 98.9 [degF] Kasia Susana Other [facility] Other 09-08-2022 10:15-0400 Body weight 55.25 kg Kasia Susana Other [facility] Other 09-08-2022 10:15-0400 Diastolic blood pressure 87 mm[Hg] Kasia Susana Other [facility] Other 09-08-2022 10:15-0400 Respiratory rate 18 /min Kasia Susana Other [facility] Other 09-08-2022 10:15-0400 SaO2% (BldA) [Mass fraction] 99 % Kasia Susana Other [facility] Other 09-08-2022 10:15-0400 Systolic blood pressure 175 mm[Hg] Kasia Susana Other [facility] Other 09-09-2021 14:35-0400 Body height 160.02 cm Kasia Meza Other [facility] Other 09-09-2021 14:35-0400 Body mass index (BMI) [Ratio] 19.84 kg/m2 Kasia Meza Other [facility] Other 09-09-2021 14:35-0400 Body temperature 98.2 [degF] Kasia Meza Other [facility] Other 09-09-2021 14:35-0400 Body weight 50.8 kg Kasia Meza Other [facility] Other 09-09-2021 14:35-0400 Diastolic blood pressure 83 mm[Hg] Kaisa Meza Other [facility] Other 09-09-2021 14:35-0400 Respiratory rate 18 /min Kasia Meza Other [facility] Other 09-09-2021 14:35-0400 SaO2% (BldA) [Mass fraction] 99 % Kasia Meza Other [facility] Other 09-09-2021 14:35-0400 Systolic blood pressure 139 mm[Hg] Kasia Meza Other [facility] Other Encounters Encounter Date Encounter Type Care Provider Facility Start: 12-10-2024 End: 12-10-2024 [facility] Result Encounter Apolinar Vasquez DO Work Phone: [facility] Unsolicited Start: 12-10-2024 End: 12-10-2024 [facility] Result Encounter Apolinar Vasquez DO Work Phone: [facility] External Department Unsolicited Start: 08-27-2024 End: 08-27-2024 Bamboo neftali Ortiz MD Work Phone: [facility] Start: 08-27-2024 End: 08-27-2024 Bamboo flowslia Ortiz MD Work Phone: [facility] Start: 08-27-2024 End: 08-27-2024 Office outpatient visit 15 minutes Sierra Ortiz MD Work Phone: [facility] Comment on above: Seborrheic keratosis (Primary Dx); Lentigines; Actinic keratosis; Seborrheic keratosis, inflamed Start: 08-27-2024 End: 08-27-2024 ambulatory SIERRA ORTIZ Not Available Start: 07-16-2024 End: 07-16-2024 Bamboo neftali Ortiz MD Work Phone: [facility] Start: 07-16-2024 End: 07-16-2024 Bamboo neftali Ortiz MD Work Phone: [facility] Start: 07-16-2024 End: 07-16-2024 Office outpatient new 20 minutes Sierra Ortiz MD Work Phone: [facility] Comment on above: Seborrheic keratosis (Primary Dx); Actinic keratosis Start: 07-16-2024 End: 07-16-2024 ambulatory SIERRA Hawa EDMONDSONITTI Not Available Start: 06-16-2024 End: 06-16-2024 Office outpatient visit 25 minutes Apolinar Vasquez DO Work Phone: [facility] Comment on above: Essential hypertensi on (CMS/HCC) (Primary Dx); Hyperlipidemia LDL goal <130 (CMS/HCC); Osteoporosis without current pathological fracture, unspecified osteoporosis type (CMS/HCC); Vitamin D deficiency; Gastroesophageal reflux disease without esophagitis; Stage 3a chronic kidney disease (HCC) (CMS/HCC); Skin lesion of face Start: 06-16-2024 End: 06-16-2024 ambulatory APOLINAR VASQUEZ Not Available Start: 06-11-2024 End: 06-11-2024 Clinisync Result Encounter Gaetano Faye HOME PERFORMANCE LABORER Work Phone: [facility] Unsolicited Start: 06-11-2024 End: 06-11-2024 Clinisync Result Encounter Gaetano Faye HOME PERFORMANCE LABORER Work Phone: [facility] Unsolicited Start: 12-30-2023 End: 12-30-2023 Office outpatient visit 25 minutes Gaetano Faye HOME PERFORMANCE LABORER Work Phone: [facility] Comment on above: Encounter for subseq uent annual wellness visit (AWV) in Medicare patient (Primary Dx); Essential hypertension (CMS/HCC); ACP (advance care planning); Hyperlipidemia LDL goal <130 (CMS/HCC); Iron deficiency anemia, unspecified iron deficiency anemia type; LPRD (laryngopharyngeal reflux disease); Need for immunization against influenza; Medication management Start: 12-30-2023 End: 12-30-2023 Patient encounter procedure Gaetano Faye HOME PERFORMANCE LABORER Work Phone: [facility] Work Phone: Start: 12-30-2023 End: 12-30-2023 ambulatory GAETANO FAYE Not Available Start: 12-24-2023 End: 12-24-2023 [facility]inisync Result Encounter Gaetano Faye HOME PERFORMANCE LABORER Work Phone: [facility] Unsolicited Start: 12-24-2023 End: 12-24-2023 Clinisync Result Encounter Gaetano Faye HOME PERFORMANCE LABORER Work Phone: [facility] Unsolicited Start: 12-17-2023 End: 12-17-2023 ambulatory DO Apolinar Vasquez Work Phone: [facility] Work Phone: Start: 12-17-2023 End: 12-17-2023 Patient encounter procedure DO Apolinar Vasquez Work Phone: [facility] Work Phone: Start: 08-11-2023 End: 08-11-2023 ambulatory [facility] Work Phone: Start: 08-11-2023 End: 08-11-2023 Patient encounter procedure [facility] Work Phone: Start: 01-30-2023 End: 01-30-2023 Patient encounter procedure DO Apolinar Vasquez Work Phone: [facility] Work Phone: Start: 01-30-2023 End: 01-30-2023 ambulatory DO Apolinar Vasquez Work Phone: [facility] Work Phone: Start: 01-30-2023 Office outpatient vi sit 15 minutes Kasia Meza [facility] Start: 11-20-2022 End: 03-27-2023 Patient encounter procedure Gaetano Faye Work Phone: [facility] Start: 11-13-2022 End: 11-13-2022 ambulatory DO Apolinar Vasquez Work Phone: [facility] Work Phone: Start: 11-13-2022 End: 11-13-2022 Patient encounter procedure DO Apolinarjon Vasquez Work Phone: [facility] Work Phone: Start: 09-08-2022 End: 09-08-2022 ambulatory Kasia Meza Other [facility] Other Start: 09-08-2022 Office outpatient vi sit 15 minutes Kasia Meza [facility] Start: 11-10-2021 End: 11-10-2021 Patient encounter procedure DO Apolinar Vasquez Work Phone: [facility] Start: 09-09-2021 End: 09-09-2021 ambulatory Kasai Meza Other [place] [facility] Other Start: 09-09-2021 Office outpatient ne w 20 minutes Kasia Meza [facility] Start: 12-28-2020 End: 12-29-2020 ambulatory ZACHARY VERA Facility:[facility] Start: 05-10-2020 End: 05-11-[address] NONE LISTED REQUEST Facility:[facility] Start: 04-11-2020 End: 04-12-2020 ambulatory ZACHARY VERA Facility: Procedures Date Procedure Procedure Detail Performing Clinician Start: 12-10-2024 ALL CBC WITH AUTO DIFF Apolinar Vasquez DO Work Phone: Start: 08-27-2024 End: 08-27-2024 CRYOTHERAPY SKIN LESION Sierra Ortiz MD Work Phone: Start: 07-16-2024 CRYOTHERAPY SKIN LESION Sierra Ortiz MD Work Phone: Start: 06-11-2024 ALL CBC WITH AUTO DIFF Gaetano L Neyda HOME PERFORMANCE LABORER Work Phone: Start: 12-24-2023 ALL CBC WITH AUTO DIFF Gaetano L Neyda HOME PERFORMANCE LABORER Work Phone: Start: 12-17-2023 Screening mammograph y [...] Start: 08-26-2025 End: 08-26-2025 Patient encounter procedure [facility] Start: 12-29-2024 Medicare Annual Wellness (AWV) Medicare Annual Wellness (AWV) [facility] Start: 12-17-2024 End: 12-17-2024 Patient encounter procedure [facility] Start: 11-02-2024 Influenza vaccination Influenza Vacc ine (#1) [facility] Start: 08-27-2024 End: 08-27-2024 Patient encounter procedure [facility] Comment on above: Arrived Start: 07-16-2024 End: 07-16-2024 Patient encounter procedure 07/16/2024 1:50 PM EDT Office Visit [facility] [address] [place] [id number] Sierra Ortiz MD [address] [place] [address] Skin lesion of face [facility] Comment on above: Skin lesion of face Start: 07-02-2024 End: 12-29-2024 CBC panel - Blood by Automated count CBC Lab Routine Iron deficiency anemia, unspecified iron deficiency anemia type Medication management Expected: 07/02/2024, Expires: 12/29/2024 [facility] Comment on above: Expected: 07/02/2024 , Expires: 12/29/2024 Start: 07-02-2024 End: 12-29-2024 Comprehensive metabolic 2000 panel - Serum or Plasma Comprehensive metabolic panel Lab Routine Essential hypertension ([facility]/HCC) Expected: 07/02/2024, Expires: 12/29/2024 [facility] Comment on above: Expected: 07/02/2024 , Expires: 12/29/2024 Start: 07-02-2024 End: 12-29-2024 Lipid 1996 panel - Serum or Plasma Lipid panel Lab Routine Hyperlipidemia LDL goal <130 (CMS/HCC) Expected: 07/02/2024, Expires: 12/29/2024 [facility] Comment on above: Expected: 07/02/2024 , Expires: 12/29/2024 Start: 07-02-2024 End: 12-29-2024 Microalbumin/Creatinine panel in random Urine Microalbumin / creatinine urine ratio Lab Routine Essential hypertension ([facility]/HCC) Expected: 07/02/2024, Expires: 12/29/2024 [facility] Work Phone: Comment on above: Expected: 07/02/2024 , Expires: 12/29/2024 Start: 06-29-2024 End: 06-29-2024 Patient encounter procedure 06/29/2024 11:15 AM EDT Office Visit [facility] [address] [place] [address] Apolinar Vasquez, DO [address] [place] [address] [facility] Start: 06-16-2024 End: 06-16-2024 Patient encounter procedure 06/16/2024 11:00 AM EDT Office Visit [facility] [address] [place] [address] Apolinar Vasquez, DO [address] [place] [address] [facility] Start: 12-30-2023 End: 12-30-2023 Patient encounter procedure 12/30/2023 11:15 AM EDT Office Visit [facility] [address] [place] [address] Apolinar Vasquez, DO [address] [place] [address] [facility] Start: 11-03-2023 Influenza vaccination Influenza Vacc ine (#1) [facility] Start: 1945 Medicare Annual Wellness (AWV) Medicare Annual Wellness (AWV) [facility] Immunizations Immunization Date Immunization Notes Care Provider Fa cili 12-30-2023 Seasonal trivalent influenza vaccine, adjuvanted, preservative free Gaetano Faye HOME PERFORMANCE LABORER Work Phone: [facility] 12-30-2023 influenza virus vacc ine, unspecified formulation Apolinar Vasquez DO Work Phone: [facility] 11-20-2022 Influenza, Seasonal, Quadrivalent, Adjuvanted Gaetano Faye HOME PERFORMANCE LABORER Work Phone: [facility] 11-20-2022 influenza virus vacc ine, unspecified formulation Gaetano Faye HOME PERFORMANCE LABORER Work Phone: [facility] 11-24-2021 Influenza, High-dose Seasonal, Quadrivalent, Preservative Free Gaetano Faye HOME PERFORMANCE LABORER Work Phone: [facility] 11-10-2021 SARS-COV-2 (COVID-19 ) vaccine, mRNA, spike protein, LNP, bivalent, PF Gaetano Faye HOME PERFORMANCE LABORER Work Phone: [facility] 12-05-2020 Influenza, High-dose Seasonal, Quadrivalent, Preservative Free Gaetano Faye HOME PERFORMANCE LABORER Work Phone: [facility] 12-17-2019 influenza, injectabl e, quadrivalent, preservative free Apolinar Vasquez DO Work Phone: [facility] 12-07-2019 Influenza, Seasonal, Quadrivalent, Adjuvanted Apolinar Vasquez DO Work Phone: [facility] 01-08-2019 influenza, high dose seasonal, preservative-free Apolinarjon Vasquez DO Work Phone: [facility] 01-13-2018 Seasonal trivalent influenza vaccine, adjuvanted, preservative free Apolinarjon Vasquez DO Work Phone: [facility] 01-02-2018 Seasonal trivalent influenza vaccine, adjuvanted, preservative free Apolinar Vasquez DO Work Phone: [facility] 09-10-2017 tetanus and diphther ia toxoids, adsorbed, preservative free, for adult use (5 Lf of tetanus toxoid and 2 Lf of diphtheria toxoid) Gaetano Faye HOME PERFORMANCE LABORER Work Phone: [facility] 02-05-2017 pneumococcal conjuga te vaccine, 13 valent Gaetano Faye HOME PERFORMANCE LABORER Work Phone: [facility] 01-07-2017 Seasonal trivalent influenza vaccine, adjuvanted, preservative free Apolinar Vasquez DO Work Phone: [facility] 01-03-2017 influenza, injectabl e, quadrivalent, preservative free Apolinar Vasquez DO Work Phone: [facility] 02-10-2016 pneumococcal polysaccharide vaccine, 23 valent Gaetano Faye HOME PERFORMANCE LABORER Work Phone: [facility] 01-17-2015 influenza, seasonal, injectable, preservative free Apolinar Patrick DO Work Phone: [facility] 01-10-2015 influenza, injectabl e, quadrivalent, contains preservative Apolinar Patrick DO Work Phone: [facility] 01-25-2014 seasonal influenza, intradermal, preservative free Apolinar Patrick DO Work Phone: [facility] 01-21-2014 influenza, injectabl e, quadrivalent, contains preservative Apolinar Patrick DO Work Phone: [facility] 02-06-2013 influenza, seasonal, injectable Apolinar Patrick DO Work Phone: [facility] Payers Date Payer Category Payer Private Health Insurance [facility] [id number] [facility] [id number] 2009 Medicare [id number] 2009 Medicare MEDICARE [id number] 2009 Medicare [id number] 1959 Self-pay 1945 Unknown [id number] 1944 Unknown [id number] 1944 Unknown [id number] 1944 Unknown [id number] Unknown [id number] Unknown [id number] Unknown [id number] Unknown [id number] Unknown [id number] Social History Date Type Detail Facility Unknown if ever smoked [facility] Start: 05-23-2023 End: 12-30-2023 Sex Assigned At [facility] Start: 1945 Sex Assigned At Female [facility] Start: 08-11-2023 End: 07-16-2024 Tobacco smoking status NHIS Ex-smoker (finding) [facility] Start: 03-04-1999 End: 03-04-2014 History of tobacco use Current smoker [facility] Start: 03-04-1999 End: 03-04-2014 History of tobacco use Cigarette Smoker [facility] Start: 10-15-2022 End: 12-30-2023 Cigarettes smoked current (pack per day) - Reported 0.5 [facility] Start: 10-15-2022 End: 07-16-2024 Tobacco use and exposure Smokeless tobacco non-user [facility] Start: 05-23-2023 End: 08-27-2024 Alcoholic beverage intake Lifetime non-drinker (finding) [facility] How often to you have a drink containing alcohol? Never [facility] How many standard drinks containing alcohol do you have on a typical day? Patient does not drink [facility] Start: 10-11-2022 Alcohol Comment Caffeine: 1-2 cups/day 8 oz of pop daily, unsweetened tea [facility] Start: 1945 Sex assigned at Not on file [facility] NEGATED: Highlighted rowStart: NINF History of tobacco use Passive smoker [facility] Clinical Notes 05-24-2016 to 08-27-2024 Sierra Ortiz [...] Examined Right arm Examined Patient wearing nail british virgin islander, Denies dark streaks under finger nails, Denies [...] limited to risks of scarring, darker or cement crusher operator pigmentary changes, recurrence, incomplete removal and infection. [...] Zygomatic Area 4. SEBORRHEIC KERATOSIS, INFLAMED Right Catholic Colome and brown stuck on verrucous scaly papule [...] limited to risks of scarring, darker or cement crusher operator pigmentary changes, recurrence, incomplete removal and infection. [...] or tenderness Cryotherapy, skin lesion - Right Catholic Next Visit: 1 year documented in this encounter [facility] 07-16-2024 History of Presen t illness Narrative Images from the original note were not included. Lesions: Location: Left cheek Duration: Over a year Quality: Itchy Modifying factors: Recurrent. Able to pick the crusting off and it comes back Associated symptoms: Gets scabby at times Treatments: Lotion, bag balm New patient, referred by Apolinar Vasquez DO All pertinent medical history, medications, and allergies were reviewed. General Exam: alert, oriented to person, place, and time, normal affect, well appearing A focused exam completed based on patient reported problems, see below: Skin Exam 1. SEBORRHEIC KERATOSIS Right Catholic Stuck on verrucous, post-brown papules and plaques. [...] limited to risks of scarring, darker or cement crusher operator pigmentary changes, recurrence, incomplete removal and infection. [...] and skin check documented in this encounter [facility] 12-30-2023 History of Presen t illness Narrative [...] planning) -Full code Hyperlipidemia LDL goal <130 (CMS/HCC) - Lipid panel; Future Iron deficiency anemia, [...] living will and a healthcare, power of regulatory attorney. She wishes to be a full [...] were reviewed and followed. Gaetano Faye, MSN, FLIGHT COMMUNICATIONS OPERATOR-COLOR TELEVISION CONSOLE MONITOR documented in this encounter [facility] 01-30-2023 Evaluation note Encounter Date Diagnosis Assessment [...] days Jan, Other Contusion material was printed [facility] 07-08-2023 Evaluation note* Encounter Date Diagnosis [...] no improvement in 2 to 3 days [facility] 07-09-2022 Evaluation note* Encounter Date Diagnosis [...] no improvement in 2 to 3 days. [facility] 03-23-2017 History general Narrative - Reported* Type Description Date Medical History hyperlipidemia Medical History fx left hip Surgical History C section Surgical History cataracts Surgical History 3 pins in left hip 05/24/2016 Hospitalization History See above [facility] 03-23-2017 History general Narrative - Reported* Type Description Date Medical History hyperlipidemia Medical History fx left hip Surgical History C section x3 Surgical History cataracts Surgical History 3 pins in left hip 05/24/2016 Hospitalization History See above [facility] Evaluation noteNo assessment information available [facility] Work Phone: Evaluation note* Diagnosis Encounter for [...] Medication management [facility] Diagnosis Essential hypertension (CMS/HCC)- Primary Unspecified essential hypertension Hyperlipidemia LDL goal <130 ([facility]/HCC) Other and unspecified hyperlipidemia Osteoporosis without current pathological fracture, unspecified osteoporosis type ([facility]/HCC) Vitamin D deficiency Gastroesophageal reflux disease without esophagitis Esophageal reflux Stage 3a chronic kidney disease (HCC) ([facility]) Skin lesion of face Unspecified disorder of skin and subcutaneous tissue [facility] Diagnosis Seborrheic keratosis- Primary Actinic keratosis [facility] Diagnosis Seborrheic keratosis- Primary Lentigines Actinic keratosis Seborrheic keratosis, inflamed [facility] N[facility]* Consultation (Routine) - Closed Specialty Diagnoses / Procedures Referred By Yancy t Referred To Contact Dermatology Diagnoses Skin lesion of face Procedures [facility] 60 MINUTES Apolinar Vasquez DO [address] [place] [address] Phone: tel: fax: Sierra Ortiz MD [address] [place] [address] Phone: tel: fax: Referral ID Status Reason Start Date Expiration Date V isits Requested Visits Authorized [id number] Closed Consult and Treat 06/16/2024 12/13/2024 1 1 [facility] Summary Purpose Family History Relationship Condition Age at Onset Recorded Date/T chetan brother Unknown father History of stroke Unknown Unknown Not Specified Congestive heart failure Unknown Heart disease Unknown Relationship Condition Age at Onset Recorded Date/T chetan brother Unknown father History of stroke Unknown Unknown mother Congestive heart failure Unknown Heart disease Unknown Advance Directives Advance Directive Response Recorded Date/ Time Advance [...] and content) DATE CREATED AUTHOR 01/17/2021 [facility] DATE CREATED AUTHOR AUTHOR'S ORGANIZ ATION 12/23/2023 [facility] DATE CREATED AUTHOR AUTHOR'S ORGANIZ ATION 08/28/2024 [facility] EPIC REASON FOR VISIT (unrecogniz [...] DO Primary Care Provider Active Gaetano Faye , RN MSN ANP-C Attending Provider Act francisca Team Status: Inactive Member Role Status Dates Apolinar Vasquez DO Primary Care Provider Active Kasia eMza NP-C Attending Provider Active Team Status: Inactive Member Role Status Dates Apolinar Vasquez DO Primary Care Provider Active Start: August 11, 2023 End: August 11, 2023 Kalli Lawrence , FLIGHT COMMUNICATIONS OPERATOR Attending Provider Active S tart: August 11, 2023 End: August 11, 2023 Team Status: Inactive Member Role Status Dates Apolinar Vasquez DO Primary Care Provider Active Start: December 17, 2023 End: December 17, 2023 Referral Self Attending Provider Active Start: O ctober 2023 End: December 17, 2023 Deputy Sheriff Building Guard Relationship Specialty Start Date End Date Apolinar Vasquez DO [address] [place] [address] PCP - General Internal Medicine 08/01/22 Apolinar Vasquez DO [address] [place] [address] PCP - ACO Reach 07/03/23 Deputy Sheriff Building Guard Relationship Specialty Start Date End Date Apolinar Vasquez DO [address] [place] [address] PCP - General Internal Medicine 08/01/22 Apolinar Vasquez DO [address] [place] [address] PCP - ACO Reach 07/03/23 Deputy Sheriff Building Guard Relationship Specialty Start Date End Date Apolinar Vasquez DO [address] [place] [address] PCP - General Internal Medicine 08/01/22 Apolinar Vasquez DO [address] [place] [address] PCP - ACO Reach 07/03/23 Deputy Sheriff Building Guard Relationship Specialty Start Date End Date Apolinar Vasquez DO [address] [place] [address] PCP - General Internal Medicine 08/01/22 Apolinar Vasquez DO [address] [place] [address] PCP - ACO Reach 07/03/23 Deputy Sheriff Building Guard Relationship Specialty Start Date End Date Apolinar Vasquez DO [address] [place] [address] PCP - General Internal Medicine 08/01/22 Apolinar Vasquez DO [address] [place] [address] PCP - ACO Reach 07/03/23 Deputy Sheriff Building Guard Relationship Specialty Start Date End Date Apolinar Vasquez DO [address] [place] [address] PCP - General Internal Medicine 08/01/22 Apolinar Vasquez DO [address] [place] [address] PCP - ACO Reach 07/03/23 Deputy Sheriff Building Guard Relationship Specialty Start Date End Date Apolinar Vasquez DO [address] [place] [address] PCP - General Internal Medicine 08/01/22 Apolinar Vasquez DO [address] [place] [address] PCP - ACO Reach 07/03/23 Deputy Sheriff Building Guard Relationship Specialty Start Date End Date Apolinar Vasquez DO Hawa [address] [place] [address] PCP - General Internal Medicine 08/01/22 Patrick Apolinar A, DO [address] [place] [address] PCP - ACO Reach 07/03/23 Deputy Sheriff Building Guard Relationship Specialty Start Date End Date Apolinar Vasquez Hawa DO [address] [place] [address] PCP - ACO Reach 07/03/23 Tamir Landon MD [address] [place] [address] PCP - General Internal Medicine 11/18/24 Goals (unrecognized section and content) Goals may [...] BE BASED ON THE PRIMARY CLINICAL RECORDS. [employer] [facility]. provides no warranty or guarantee of the accuracy or completeness of information in this document.
--- NOTE | 2024-12-11 15:50 | ED.GENADUL1 ---
HPI HPI - General Adult General Chief complaint: Skin/Abscess/Foreign Body Stated complaint: Bee Bite Time Seen by Provider: 12/11/24 15:25 Source: patient Mode of arrival: walk-in History of Present Illness HPI narrative: 79-year-old female presents for bee sting to her right thumb. This happened about an hour ago. She noted some localized redness and swelling. She was concerned because a few years ago she got stung numerous times and she ended up having vomiting and diarrhea. She has had none of those symptoms today. No difficulty breathing or swallowing. Related Data Home Medications ?Medication ?Instructions ?Recorded ?Confirmed atorvastatin 10 mg tablet 10 mg PO DAILY 12/11/24 12/11/24 lisinopril 5 mg tablet 5 mg PO DAILY 12/11/24 12/11/24 pantoprazole 40 mg tablet,delayed 40 mg PO Q12H 12/11/24 12/11/24 release Allergies Allergy/AdvReac Type Severity Reaction Status Date / Time No Known Drug Allergies Allergy Verified 10/21/22 13:21 Opioid HPI Opioid Management Most Recent Opioid Data: Last Pain Scale 7 Today, 15:30 Review of Systems ROS Narrative A ten point review of systems is negative except as noted above. PFSH PFSH Social History Little interest or pleasure in doing things: not at all Feeling down, depressed, or hopeless: not at all Exam Narrative Exam Narrative: Nurses note and vital signs reviewed and patient is not hypoxic. General:The patient appears well and in no apparent distress.Patient is resting comfortably on cart. Skin:Warm, dry, no pallor noted.there is localized erythema and swelling at her left thumb. Tongue not swollen. Head:Normocephalic, atraumatic Eye: Normal conjunctiva, no drainage Ears, Nose, Mouth, and Throat: oral mucosa is moist. Nares patent. Cardiovascular:Regular Rate and Rhythm Respiratory:Patient is in no distress, no accessory muscle use, lungs are clear to auscultation, no wheezing, rales or rhonchi Back:non-tender GI: Soft and nontender Musculoskeletal: The patient has no evidence of calf tenderness, no pitting edema, symmetrical pulses noted bilaterally Neurological: Awake and alert Psychiatric:Cooperative Constitutional Vital Signs, click to edit/add: Last Vital Signs Temp 98.6 F 12/11/24 15:30 Pulse 82 12/11/24 15:30 Resp 15 12/11/24 15:30 BP 155/92 H 12/11/24 15:30 Pulse Ox 98 12/11/24 15:30 O2 Del Method Room Air 12/11/24 15:30 Course Vital Signs Vital signs: Vital Signs Temperature 98.6 F 12/11/24 15:30 Pulse Rate 82 12/11/24 15:30 Respiratory Rate 15 12/11/24 15:30 Blood Pressure 155/92 H 12/11/24 15:30 Pulse Oximetry 98 12/11/24 15:30 Oxygen Delivery Method Room Air 12/11/24 15:30 Temperature 98.6 F 12/11/24 15:30 Pulse Rate 82 12/11/24 15:30 Respiratory Rate 15 12/11/24 15:30 Blood Pressure 155/92 H 12/11/24 15:30 Pulse Oximetry 98 12/11/24 15:30 Oxygen Delivery Method Room Air 12/11/24 15:30 Medical Decision Making MDM Narrative Medical decision making narrative: The patient was given oral prednisone here and observed. She had already taken Benadryl at home, 50 mg. She is able to be discharged home. Treatment diagnosis and follow-up were discussed with the patient. Differential Diagnosis Differential Diagnosis: Bee sting Discharge Plan Discharge Chief Complaint: Skin/Abscess/Foreign Body Clinical Impression: Bee sting Patient Disposition: Home, Self-Care Time of Disposition Decision: 15:54 Condition: Good Mode of Transportation: Private Vehicle Prescriptions / Home Meds: No Action atorvastatin 10 mg tablet 10 mg PO DAILY pantoprazole 40 mg tablet,delayed release (DR/EC) 40 mg PO Q12H lisinopril 5 mg tablet 5 mg PO DAILY Print Language: Sinhala Instructions: Insect Bite or Sting (ED) Referrals: [facility] [Primary Care Provider, Internal Medicine] - 1 week
[2024-12-11] MEDS: PREDNISONE 20 MG TABLET 40 MG PO (16:09)
[2024-12-11 17:07] VITALS: BP 127/63; PULSE 78; O2SAT 98
== END 2024-12-11 17:09 | disposition home or self-care (01) ==
PROVIDERS: Emergency Provider Emergency Medicine; PCP Nurse Practitioner Adult Health
DX: T63.441A Toxic effect of venom of bees, accidental (unintentional), initial encounter (principal); M79.89 Other specified soft tissue disorders
CPT/HCPCS: 99283; J7512